=== PATIENT | male | born 1980 | race Caucasian/White ===

== ENCOUNTER 2016-09-20 21:27 | Inpatient (IN) | payer OTHER ==
--- NOTE | ~2016-09-20 | PN ---
Unit #: [id number] #: [id number] Patient: GEORGIA CA III [id number] [facility] [address] [place] [address] [id number] MR#: [id number] NAME: GEORGIA CA III ROOM: [facility] Age: 36 Sex: M Admission Date: 09/20/2016 : 1980 Attending Physician: Sid Caro M.D. Admitting Physician: Sid Caro M.D. Primary Care Physician: Primary Care Physician Ruth DOOLEY PROGRESS NOTES DATE 09/26/2016 DISCUSSION Mr. Ca is a 36-year-old, white male who was seen today and chart was reviewed and case was discussed with the staff. He has been anxious, withdrawn though has not shown any agitation, irritability or behavioral problems and has been cooperative with the treatment recommendations. He has been taking the medication and tolerating them fairly well with no reported side effects. MENTAL STATUS EXAM Young white male who was casually dressed with fair personal hygiene, appears to be in no acute distress or discomfort. He was awake and alert on interaction with intact orientation. His mood was anxious with congruent affect but denies any suicidal or homicidal ideation. His insight and judgement remains slightly impaired. TREATMENT PLAN 1. We will continue him on his current medications and treatment protocol. We will monitor his response and make further adjustments as needed. 2. We will continue to follow up. Dictated by... Carl Cabrales/tita TD: 09/27/2016 23:40 JOB #: [id number] Unit #: [id number] #: [id number] Patient: GEORGIA CA III [facility] PROGRESS NOTES Page 1 of 1 X Sid Caro MD PROGRESS NOTE
--- NOTE | ~2016-09-20 | PN ---
Unit #: [id number] #: [id number] Patient: GEORGIA HUERTA III [id number] [facility] [address] [place] [address] [id number] I MR#: [id number] NAME: GEORGIA HUERTA III ROOM: [facility] Age: 36 Sex: M Admission Date: 09/20/2016 : 1980 Attending Physician: Sid Caro M.D. Admitting Physician: Carl Cabrales PROGRESS NOTES DATE OF SERVICE: 09/24/2016 SUBJECTIVE Mr. Huerta is a 36-year-old white male, who was seen today and chart was reviewed and the case was discussed with the staff. He has been anxious, withdrawn, depressed, and rather seclusive to himself and reports persistent feelings of hopelessness and helplessness. Meanwhile, he has been taking the medications and tolerating them fairly well with no reported side effects. MENTAL STATUS EXAMINATION Young white male, who was casually dressed with fair personal hygiene, appears to be in no acute distress or discomfort. He was awake and alert on interaction with intact orientation. His mood was anxious and depressed with a congruent affect. His speech was slow and goal directed. He denies any suicidal or homicidal ideations and also denies any auditory or visual hallucinations. His insight and judgment remain slightly impaired. TREATMENT PLAN 1. We will continue him on his current treatment protocol and we will increase his Paxil to 40 mg a day. 2. We will continue to follow up. Dictated by... Carl Cabrales/mary TD: 09/24/2016 21:10 JOB #: [id number] Unit #: [id number] #: [id number] Patient: GEORGIA HUERTA III [facility] PROGRESS NOTES Page 1 of 1 X Sid Caro MD PROGRESS NOTE
--- NOTE | ~2016-09-20 | PN ---
Unit #: [id number] #: [id number] Patient: GEORGIA HUERTA III [id number] [facility] [address] [place] [address] [id number] I MR#: [id number] NAME: GEORGIA HUERTA III ROOM: [facility] Age: 36 Sex: M Admission Date: 09/20/2016 : 1980 Attending Physician: Sid Caro M.D. Admitting Physician: Carl Cabrales PROGRESS NOTES DATE OF SERVICE: 09/22/2016 SUBJECTIVE Mr. Huerta is a 36-year-old white male, who was seen today and chart was reviewed and case was discussed with the staff. He has been anxious, withdrawn, and rather seclusive to himself and he reports is still having auditory as well as visual hallucinations and increasing anxiety. However, he has been taking medications and tolerating them fairly well with no reported side effects. MENTAL STATUS EXAMINATION Young white male who was casually dressed with a fair personal hygiene, appears to be in no acute distress or discomfort. He was awake and alert on interaction with intact orientation. His mood was anxious with a congruent affect. He denies any suicidal or homicidal ideations, though he does report auditory or visual hallucinations. His insight and judgment remain slightly impaired. TREATMENT PLAN 1. We will continue his current medications and treatment protocol. We will monitor his response to medications and make further adjustments as needed. 2. We will continue to follow up. Dictated by... Carl Cabrales/mary TD: 09/22/2016 08:45 JOB #: [id number] Unit #: [id number] #: [id number] Patient: GEORGIA HUERTA III [facility] PROGRESS NOTES Page 1 of 1 X Sid Caro MD PROGRESS NOTE
--- NOTE | ~2016-09-20 | HP ---
Unit #: [id number] #: [id number] Patient: HUGO HUERTA III [id number] [place] [address] [id number] I MR#: [id number] NAME: HUGO HUERTA III ROOM: [facility] Age: 36 Sex: M Admission Date: 09/20/2016 : 1980 Attending Physician: Sid Caro M.D. Admitting Physician: Sid Caro M.D. Primary Care Physician: Primary Care Physician No HISTORY AND PHYSICAL HISTORY OF PRESENT ILLNESS Hugo is a 36 year old [address] to [facility] because of his continued polysubstance abuse which includes IV meth and heroin. PAST MEDICAL HISTORY 1. Long history of polysubstance abuse to include IV drugs. 2. Degenerative disc disease. a. Chronic back pain. 3. Hepatitis C. 4. High blood pressure. 5. History of Tourettes. 6. GERD. 7. COPD. 8. History of drug induced [place], by patient's report. PAST SURGICAL HISTORY 1. Right ankle fracture with ORIF. 2. Bilateral wrist fractures and right boxer fracture with ORIF. ALLERGIES Haldol, ibuprofen (itching), naproxen. SOCIAL HISTORY Smokes two packs per day, has a long history of polysubstance abuse to include IV drugs. FAMILY HISTORY Medically noncontributory. REVIEW OF SYSTEMS CONSTITUTIONAL: No fever or chills. HEENT: Denies any sore throat, ear pain or runny nose. CARDIOVASCULAR: Denies chest pain, irregular heart rhythm or palpitations. CHEST: Denies shortness of breath or cough. No hemoptysis. GASTROINTESTINAL: Denies nausea, vomiting, diarrhea or chronic constipation. ENDOCRINE: Denies history of increased thirst or urination. No recent significant weight loss or gain. GENITOURINARY: Denies dysuria, frequency, or hematuria. SKIN: Denies any rashes. HEMATOLOGIC: Denies history of increased bleeding or bruising. MUSCULOSKELETAL: Denies any hot, swollen joints. No generalized muscle Unit #: [id number] #: [id number] Patient: HUGO HUERTA III pain. NEUROLOGIC: Denies problems with vision or speech. No frequent, severe headaches. No numbness, tingling or weakness in any extremities. Denies loss of bladder or bowel control. CURRENT MEDICATIONS 1. Detox protocol 2. Paxil 20 mg daily PHYSICAL EXAMINATION GENERAL: Alert, well-nourished, in no apparent distress. VITAL SIGNS: Blood pressure 100/62, heart rate 80, respirations 16, temperature 98.6. WEIGHT: 212 pounds. HEIGHT: 5'1". SKIN: Warm and dry without rash or lesion. HEENT: Normocephalic. TMs not viewed. Oral and nasal passages clear. Conjunctivae clear. Pupils equal, round and reactive to light and accommodation. Extraocular movements intact. NECK: Supple without lymphadenopathy or thyromegaly. HEART: Regular rate and rhythm without murmur. LUNGS: Clear. ABDOMEN: Soft, nontender. : Not done. EXTREMITIES: No evidence of cyanosis, clubbing or edema. Moves all extremities without focal deficit. NEUROLOGICAL: Grossly within normal limits. Cranial Nerves: II: Visual duvall are intact. III, IV AND : Extraocular movements are intact. Pupils are equal, round and reactive to light. V: Facial sensation is grossly normal. VII: Facial movements and expression are normal. VIII: Auditory acuity grossly intact. IX, X: Uvula is midline. Phonation is normal. XI: Patient shrugs shoulders and turns head normally. XII: Tongue protrudes in the midline. Sensory and Motor Function: Sensory and motor sensation is grossly normal. Motor: moves all extremities well. Coordination: Gait is normal. Deep Tendon Reflexes: Intact. IMPRESSION Psychiatric admission RECOMMENDATIONS PSYCHIATRIC: Per psychiatrist. MEDICAL: I see no contraindications to participating in facility's activities. MEDICAL PROGNOSIS Good. MEDICAL CONDITION Stable. Dictated by... Unit #: [id number] #: [id number] Patient: HUGO HUERTA III Isidra Bustos P.A.-C. for Carl Santos/tita TD: 09/21/2016 22:03 JOB #: [id number] HISTORY AND PHYSICAL Page 1 of 1 X Isidra Bustos HISTORY AND PHYSICAL
--- NOTE | ~2016-09-20 | PN ---
Unit #: [id number] #: [id number] Patient: GEORGIA CA III [id number] [facility] [address] [place] [address] [id number] I MR#: [id number] NAME: GEORGIA CA III ROOM: [facility]1 Age: 36 Sex: M Admission Date: 09/20/2016 : 1980 Attending Physician: Sid Caro M.D. Admitting Physician: Sid Caro M.D. Primary Care Physician: Primary Care Physician Ruth DOOLEY PROGRESS NOTES DATE 09/23/2016 DISCUSSION Mr. Ca is a 36-year-old, white male with mood disorder who was seen today and chart was reviewed and case was discussed with the staff. He remains anxious, withdrawn, depressed and seclusive to himself reports strong feelings and has been complaining of persistent auditory hallucinations and depressive symptoms. He has been taking the medications and tolerating them fairly well. MENTAL STATUS EXAM Young white male who was casually dressed with fair personal hygiene, appears to be in no acute distress or discomfort. He was awake and alert on interaction with intact orientation. His mood was anxious and depressed with congruent affect. He reports having suicidal ideations and auditory hallucinations. His insight and judgement remains significantly impaired. TREATMENT PLAN 1. We will continue him on his current treatment protocol. We will monitor his response to treatment interventions and we will make further adjustments as needed. 2. We will continue to follow up. Dictated by... Carl Cabrales/tita TD: 09/23/2016 21:17 JOB #: [id number] Unit #: [id number] #: [id number] Patient: GEORGIA CA III [facility] PROGRESS NOTES Page 1 of 1 X Sid Caro MD PROGRESS NOTE
--- NOTE | ~2016-09-20 | PA ---
Unit #: [id number] #: [id number] Patient: GEORGIA HUERTA III [id number] [facility] [address] [place] [address] [id number] I MR#: [id number] NAME: GEORGIA HUERTA III ROOM: [facility] Age: 36 Sex: M Admission Date: 09/20/2016 : 1980 Date of Assessment: 09/21/2016 Attending Physician: Sid Caro M.D. Admitting Physician: Sid Caro M.D. Primary Care Physician: Primary Care Physician No PSYCHIATRIC ASSESSMENT DATE OF SERVICE 09/21/2016. IDENTIFYING DATA Mr. Huerta is 36-year-old single white male, who is a [place], [place], and is known to us from previous multiple encounters and was self-referred to the hospital. CHIEF COMPLAINT "I've been depressed and suicidal for a while now." HISTORY OF PRESENT ILLNESS Mr. Huerta is a 36-year-old white male with history of substance abuse and mood disorder, who was self-referred to the hospital. Reporting increasing depression, anxiety, and suicidal ideation, "I used meth yesterday." He reports that he has been out of long-term for two and half weeks and since then he has been using up to 3 g a day of IV meth and has been using 0.5 g of IV heroin a day. Reports that he is suicidal and wants to cut his throat to kill himself. Reports meth related delusional thoughts about police watching and monitoring and reports that he became paranoid at [facility]. Last night, causing a scene and was asked to leave the [facility], and he has been awake for 3 days. He was seen to be anxious, withdrawn, agitated, irritable, and reporting active suicidal ideations, and as such, recommendation for inpatient hospitalization for safety and stabilization was made. SUBSTANCE ABUSE HISTORY The patient reports history of cocaine and opioids and methamphetamine abuse and currently methamphetamine and heroin appears to be his drug of choice. PAST PSYCHIATRIC HISTORY The patient has had history of multiple [facility] in addition to being at [facility]. Review of the medical records indicate that his last hospitalization was in 11/2015 and was diagnosed with depression with psychosis as well as opioid and methamphetamine dependence. PAST MEDICAL HISTORY The patient's medical history is significant for hepatitis C, degenerative disk disease, hypertension, Tourette syndrome, gastroesophageal reflux disease, COPD, history of myocardial infarction, factor V deficiency. Unit #: [id number] #: [id number] Patient: GEORGIA HUERTA III ALLERGIES Haldol, ibuprofen, and naproxen. PERSONAL AND SOCIAL HISTORY A 36-year-old white male, who reports that he is single, unemployed, and essentially homeless as he was staying in a [facility] house and was kicked out of there. MENTAL STATUS EXAMINATION Young white male who was casually dressed with fair personal hygiene, appears to be in no acute distress or discomfort. He was awake and alert on interaction with intact orientation to time, place, and person. His mood was anxious and depressed with a congruent affect. His speech was slow and restricted in content. His thought processes were disorganized with some looseness of associations and suicidal ideations and paranoid ideations and delusional behavior. His insight and judgment remain significantly impaired. DIAGNOSTIC IMPRESSION Psychiatric: Major depressive disorder, recurrent, moderate, with psychosis; opioid dependence, moderate and acute withdrawals; methamphetamine dependence, moderate. Medical: Hepatitis C, degenerative disk disease, hypertension, Tourette syndrome, gastroesophageal reflux disease, chronic obstructive pulmonary disease, myocardial infarction, and factor V deficiency. Stressors: Moderate psychosocial stressors. TREATMENT PLAN 1. The patient has presented with history of mood disorder and substance abuse and dependence and has been decompensating and will need inpatient hospitalization for safety and stabilization. We will start him back on his home medications and we will adjust the medications. We will also start him on opioid detox protocol. 2. Supportive therapy was provided to the patient. 3. Safe, structured, and nourishing environment will be provided. ESTIMATED LENGTH OF STAY 4 to 5 days. ABILITY TO HELP SELF Limited. WILLINGNESS TO HELP SELF The patient appears to be willing to help self. STRENGTHS 1. Communicative. 2. Cooperative. PROBLEMS 1. Chronic dysphoric symptoms. 2. Poor social support system. DISCHARGE CRITERIA This will be contingent upon the patient's ability to show resolution of his depression and anxiety and psychosis as well as his ability to stay safe to himself, particularly after discharge from the hospital. Unit #: [id number] #: [id number] Patient: GEORGIA HUERTA III Dictated by... Carl Cabrales/mary TD: 09/21/2016 07:08 JOB #: [id number] PSYCHIATRIC ASSESSMENT Page 1 of 1 X Sid Caro MD PSYCHIATRIC ASSESSMENT
--- NOTE | ~2016-09-20 | DS ---
Unit #: [id number] #: [id number] Patient: GEORGIA HUERTA III [id number] [facility] [address] [place] [address] [id number] I MR#: [id number] NAME: GEORGIA HUERTA III ROOM: [facility] Age: 36 Sex: M Admission Date: 09/20/2016 : 1980 Discharge Date: 09/28/2016 Attending Physician: Sid Caro M.D. Primary Care Physician: Primary Care Physician No DISCHARGE SUMMARY IDENTIFYING DATA Mr. Huerta is a 36-year-old single white male, who is a resident of [place], [place], and is known to us from previous encounter, was self-referred to the hospital. DISCHARGE DIAGNOSES Psychiatric: Major depressive disorder, recurrent, moderate, with psychosis; opioid dependence, moderate and acute withdrawals; methamphetamine dependence, moderate. Medical: Hepatitis C, degenerative disk disease, hypertension, Tourette syndrome, gastroesophageal reflux disease, chronic obstructive pulmonary disease, myocardial infarction, factor V deficiency. Stressors: Moderate psychosocial stressors. HISTORY OF PRESENT ILLNESS Please see initial psychiatric evaluation for details. PAST PSYCHIATRIC HISTORY Please see initial psychiatric evaluation for details. PAST MEDICAL HISTORY Please see initial psychiatric evaluation for details. HOSPITAL COURSE The patient was admitted to the adult psychiatric unit at [facility] and was oriented to the hospital environment. Routine p.r.n. medications were initiated, and he was started back on his home medications. Medications were adjusted and Seroquel and Paxil were restarted and Paxil was then gradually titrated up as the patient was constantly complaining of persistent depression, anxiety, and hallucinations; however, it was also noticed that he was minimally motivated towards treatment, and was just sleeping and eating most of the time and not participating any treatment related activities and was just wanting to stay in his bed and with no further adjustments being made in his medications, it was decided that he will be discharged home and will continue treatment on an outpatient basis. DISCHARGE MEDICATIONS Seroquel 100 mg at bedtime for psychosis and Paxil 40 mg in the morning for depression. DISCHARGE CONDITION Stable. Unit #: [id number] #: [id number] Patient: GEORGIA HUERTA III PROGNOSIS Fair. Dictated by... Sid Caro M.D. IAA/modl TD: 09/28/2016 06:53 JOB #: [id number] DISCHARGE SUMMARY Page 1 of 1 X Sid Caro MD DISCHARGE SUMMARY
--- NOTE | ~2016-09-20 | PN ---
Unit #: [id number] #: [id number] Patient: GEORGIA CA III [id number] [facility] [address] [place] [address] [id number] MR#: [id number] NAME: GEORGIA CA III ROOM: [facility] Age: 36 Sex: M Admission Date: 09/20/2016 : 1980 Attending Physician: Sid Caro M.D. Admitting Physician: Sid Caro M.D. Primary Care Physician: Primary Care Physician Ruth BARNETT NOTES DATE 09/25/2016 DISCUSSION Mr. Ca is a 36-year-old white male who was seen today and chart was reviewed and case was discussed with the staff. He has been anxious, withdrawn though has not shown any agitation, irritability or behavioral problems and has been cooperative with treatment recommendations as he has been taking medications and tolerating them fairly well with no reported side effects. MENTAL STATUS EXAMINATION Young white male who was casually dressed with fair personal hygiene and appears to be in no acute distress or discomfort. He was awake and alert on interaction with intact orientation. His mood was anxious with congruent affect. His speech is slow and restricted in content. He reports having suicidal ideation and auditory hallucinations. His insight and judgement remains slightly impaired. TREATMENT PLAN 1. Will continue on his current medications and treatment protocol. Will monitor his response to the medications and make further adjustments as needed. 2. Will continue to follow up. Dictated by... Carl Cabrales/duncan TD: 09/25/2016 18:52 JOB #: [id number] Unit #: [id number] #: [id number] Patient: GEORGIA CA III [facility] PROGRESS NOTES Page 1 of 1 X Sid Caro MD PROGRESS NOTE
--- NOTE | ~2016-09-20 | PN ---
Unit #: [id number] #: [id number] Patient: GEORGIA CA III [id number] [facility] [address] [place] [address] [id number] MR#: [id number] NAME: GEORGIA CA III ROOM: [facility] Age: 36 Sex: M Admission Date: 09/20/2016 : 1980 Attending Physician: Sid Caro M.D. Admitting Physician: Sid Caro M.D. Primary Care Physician: Primary Care Physician Ruth DOOLEY PROGRESS NOTES DATE 09/27/2016 DISCUSSION Mr. Ca is a 36-year-old, white male who was seen today and chart was reviewed and case was discussed with the staff. He has been anxious, withdrawn and rather seclusive to himself. Meanwhile, he has been cooperative with treatment recommendations. He has been taking the medication and tolerating them fairly well with no reported side effects. MENTAL STATUS EXAM Young white male who was casually dressed with fair personal hygiene, appears to be in no acute distress or discomfort. He was awake and alert on interaction with intact orientation. His mood was anxious and depressed with congruent affect. He denies any suicidal or homicidal ideation. Also, denies any auditory or visual hallucinations. His insight and judgement remains slightly impaired. TREATMENT PLAN 1. We will continue him on his current treatment protocol. We will monitor his response and make further adjustments as needed. 2. We will continue to follow up. Dictated by... Carl Cabrales/tita TD: 09/28/2016 21:11 JOB #: [id number] Unit #: [id number] #: [id number] Patient: GEORGIA CA III [facility] PROGRESS NOTES Page 1 of 1 X Sid Caro MD PROGRESS NOTE
[~2016-09-20 21:27] MED LIST: AMOXICILLIN PO; DIAZEPAM PO
[2016-09-21 09:25] LABS: BASOPHIL% 0.5 % (0-2.5); EOSINOPHIL# 0.1 X10e3 (0-0.7); EOSINOPHIL% 1.9 % (0.0-7.0); HEMATOCRIT 42.6 % (38.0-50.0); HEMOGLOBIN 14.6 gm/dL (13.0-16.0); LYMPHOCYTE# 2.4 X10e3 (1.0-3.5); LYMPHOCYTE% 34.2 % (17.0-45.0); MEAN CELL VOLUME 88.5 FL (83-96); MEAN CORPUSCULAR HEMOGLOBIN 30.4 PG (28-34); MEAN CORPUSCULAR HGB CONC 34.3 g/dL (30-36); MEAN PLATELET VOLUME 8.1 FL (6.5-11.5); MONOCYTE# 0.9 X10e3 (0-1.0); MONOCYTE% 12.2 % (3.0-12.0); NEUTROPHIL# 3.6 X10e3 (1.5-7.1); NEUTROPHIL% 51.2 % (40-75); PLATELET COUNT 254 X10e3 (140-420); RED BLOOD COUNT 4.81 X10e (3.90-5.60); RED CELL DISTRIBUTION WIDTH 13.3 % (11.0-15.5); WHITE BLOOD COUNT 7.1 X10e3 (4.0-10.5)
[2016-09-21 09:52] LABS: DIFF IND NO; THYROID STIMULATING HORMONE 0.99 uIU/ml (0.34-5.60)
[2016-09-21 09:53] LABS: ALBUMIN SERUM 4.4 g/dL (3.5-5.0); BILIRUBIN,TOTAL 2.1 mg/dL (0.2-2.0); CALCIUM SERUM 9.3 mg/dL (8.4-10.2); CREATININE SERUM 0.6 mg/dL (0.6-1.4); GLOM FILT RATE Estimated 130.3 mL/min (>60); POTASSIUM 3.6 mmol/L (3.5-5.1); PROTEIN TOTAL SERUM 7.3 g/dL (6.0-8.3)
[2016-09-21 10:01] LABS: FREE THYROXIN (T4) 1.3 ng/dL (0.58-1.64)
[2016-09-22 09:32] LABS: URINE APPEARANCE CLEAR; URINE BILIRUBIN NEG (NEG); URINE BLOOD NEG (NEG); URINE COLOR YELLOW; URINE GLUCOSE NEG (NEG); URINE KETONE TRACE (NEG); URINE LEUKOCYTE ESTERASE NEG (NEG); URINE NITRATE NEG (NEG); URINE PROTEIN NEG (NEG); URINE SPECIFIC GRAVITY 1.014 (1.003-1.035); URINE UROBILINOGEN 0.2 MG/DL (NEG)
[2016-09-22 10:01] LABS: AMPHETAMINE POS (NEG); BARBITURATES NEG (NEG); BENZODIAZEPINES NEG (NEG); COCAINE POS (NEG); MARIJUANA NEG (NEG); OPIATES NEG (NEG); TRICYCLIC ANTIDEPRESSANTS NEG (NEG); U METHADONE NEG (NEG)
[2016-09-25 11:33] LABS: HA AB IGM (HEPPAN) Nonreactive (()); HB CORE AB IGM (HEPPAN) Reactive (Nonreactive); HB S AG (HEPPAN) Nonreactive (Nonreactive); HEP C AB (HEPPAN) Reactive (Nonreactive)
== END 2016-09-28 09:15 | disposition home or self-care (01) | DRG 885 ==
LOC: P1E 21:27
PROVIDERS: Psychiatry & Neurology Psychiatry
PROC: HZ2ZZZZ Detoxification Services for Substance Abuse Treatment (ICD-10-PCS; principal; 2016-09-20)
DX: F33.3 Major depressive disorder, recurrent, severe with psychotic symptoms (principal); D68.2 Hereditary deficiency of other clotting factors; F15.20 Other stimulant dependence, uncomplicated; F95.2 Tourette's disorder; R45.851 Suicidal ideations; F11.23 Opioid dependence with withdrawal; B19.20 Unspecified viral hepatitis C without hepatic coma; I10 Essential (primary) hypertension; M19.90 Unspecified osteoarthritis, unspecified site; J44.9 Chronic obstructive pulmonary disease, unspecified; K21.9 Gastro-esophageal reflux disease without esophagitis; I25.2 Old myocardial infarction; Z59.0 Homelessness; F17.210 Nicotine dependence, cigarettes, uncomplicated
CPT/HCPCS: 80053; 80074; 80307; 81003; 84439; 84443; 85025; 86592; 87522; 87806

== ENCOUNTER 2016-10-11 22:57 | Inpatient (IN) | payer OTHER ==
--- NOTE | ~2016-10-11 | PA ---
Unit #: [id number] #: [id number] Patient: GEORGIA CA III [id number] [facility] [place] [address] [id number] MR#: [id number] NAME: GEORGIA CA III ROOM: P178 Age: 36 Sex: M Admission Date: 10/11/2016 : 1980 Date of Assessment: Attending Physician: Sid Caro M.D. Admitting Physician: Sid Caro M.D. Primary Care Physician: Primary Care Physician No PSYCHIATRIC ASSESSMENT DATE OF SERVICE 10/12/2016. IDENTIFYING DATA Mr. Ca is a 36-year-old, single, white male, who is a resident of [place], [place], and is well known to us from previous multiple encounters and was recently discharged from my care and was self-referred back to the hospital. CHIEF COMPLAINT "Suicidal ideation with a plan to overdose on heroin or ICE." HISTORY OF PRESENT ILLNESS Mr. Myers is a 36-year-old white male with a history of substance abuse and dependence, mood disorder, who was recently self-referred back to the hospital reporting increasing depression and felt that he has felt depressed about life itself and that he has not seen children for the past 8 months and he has been using a quarter of a gram of IV heroin and reports using 2 g IV meth on daily basis and last use was last night. He reports that he takes 4 to 5 Xanax on daily basis and last use was yesterday. Reports he relapsed because he is unable to see his children and admits to noncompliance with medications leading to increased depression, anxiety, irritability, restlessness, feelings of hopelessness and helplessness, and suicidal ideations with intent and plan. SUBSTANCE ABUSE HISTORY The patient reports history of cannabis, opioids, methamphetamine, benzodiazepine abuse, and currently, he has been using opioids, methamphetamine and benzos on regular basis. PAST PSYCHIATRIC HISTORY The patient has had a history of multiple inpatient psychiatric hospitalizations at [facility] and has been diagnosed and treated for mood disorder. Review of the medical records indicate that he is supposed to be on Paxil and Seroquel, but has been noncompliant with medication as such, has been decompensating. PAST MEDICAL HISTORY Hepatitis C and degenerative disk disease. ALLERGIES Haldol. Unit #: [id number] #: [id number] Patient: GEORGIA CA III PERSONAL AND SOCIAL HISTORY A 36-year-old white male, who reports that he is single, unemployed, and essentially homeless and has poor social support system. MENTAL STATUS EXAMINATION Young white male, who was casually dressed with fair personal hygiene, appears to be in no acute distress or discomfort. He was awake and alert on interaction with intact orientation to time, place, and person. His mood was anxious and depressed with a congruent affect. His speech was slow and goal directed. Thought process, he reports having suicidal ideation, but denies any homicidal ideations, and also denies any auditory or visual hallucinations. His insight and judgment remain significantly impaired. DIAGNOSTIC IMPRESSION Psychiatric: Major depressive disorder, recurrent, moderate, without psychotic features; opioid dependence, moderate and acute withdrawals; benzodiazepine dependence, moderate; methamphetamine dependence, moderate. Medical: Hepatitis C, bulging disks. Stressors: Moderate psychosocial stressors. TREATMENT PLAN 1. The patient has presented with a history of substance abuse and mood disorder, and has been decompensating and will need inpatient hospitalization for detoxification, safety, and stabilization. We will start him back on his home medications. We will adjust the medications and monitor response. 2. Supportive therapy was provided to the patient. 3. Safe, structured, and nourishing environment will be provided. ESTIMATED LENGTH OF STAY 4 to 5 days. ABILITY TO HELP SELF Limited. WILLINGNESS TO HELP SELF The patient appears to be willing to help self. STRENGTHS 1. Communicative. 2. Cooperative. PROBLEMS 1. Chronic dysphoric symptoms. 2. Chronic chemical dependency. 3. Poor social support system. DISCHARGE CRITERIA This will be contingent upon the patient's ability to go through detox without having any significant withdrawal symptoms as well as his ability to stay safe to himself, particularly after discharge from the hospital. Dictated by... Sid Caro M.D. Unit #: [id number] #: [id number] Patient: GEORGIA CA III IAA/modl TD: 10/12/2016 07:06 JOB #: [id number] PSYCHIATRIC ASSESSMENT Page 1 of 1 X Sid Caro A MD X PSYCHIATRIC ASSESSMENT
--- NOTE | ~2016-10-11 | HP ---
Unit #: [id number] #: [id number] Patient: HUGO HUERTA III [id number] [facility] [address] [place] [address] [id number] MR#: [id number] NAME: HUGO HUERTA III ROOM: [facility] Age: 36 Sex: M Admission Date: 10/11/2016 : 1980 Attending Physician: Sid Caro M.D. Admitting Physician: Sid Caro M.D. Primary Care Physician: Primary Care Physician No HISTORY AND PHYSICAL HISTORY OF PRESENT ILLNESS Hugo is a 36-year-old admitted to [facility] because of his continued polysubstance abuse. He has had numerous admissions to this facility for treatment of the same. Patient was seen and H and P dated 09/21/2016, was reviewed; this is current. No changes except he does have multiple "sores" along his anterior chest and upper abdomen. There is no increased redness, swelling, heat or pus noted. MEDICAL ASSESSMENT AND PLAN 1. Continued polysubstance abuse 2. Multiple small sores where he picks when he is high RECOMMENDATIONS 1. Psychiatric, per psychiatrist. 2. Medical: I see no contraindications to participating in facility's activities. Keep the sores clean with soap and water. No further prescription. Please see H and P dated 09/21/2016, for History and Physical exam. Dictated by... Mateo Rosales/gifty TD: 10/12/2016 20:10 JOB #: [id number] Unit #: [id number] #: [id number] Patient: HUGO HUERTA III HISTORY AND PHYSICAL Page 1 of 1 X Isidra Bustos HISTORY AND PHYSICAL
--- NOTE | ~2016-10-11 | PN ---
Unit #: [id number] #: [id number] Patient: GEORGIA CA III [id number] [facility] [address] [place] [address] [id number] MR#: [id number] NAME: GEORGIA CA III ROOM: [facility] Age: 36 Sex: M Admission Date: 10/11/2016 : 1980 Attending Physician: Sid Caro M.D. Admitting Physician: Sid Caro M.D. Primary Care Physician: Primary Care Physician Ruth BARNETT NOTES DATE 10/16/2016 DISCUSSION Mr. Ca is a 36-year-old white male who was seen today, chart was reviewed and case was discussed with the staff. He has been anxious and withdrawn and rather seclusive to himself. Meanwhile, he has been cooperative with treatment recommendations. He has been taking medication and tolerating them fairly well. symptoms. MENTAL STATUS EXAMINATION Young white male who was casually dressed with fair personal hygiene and appears to be in no acute distress or discomfort. . His mood was anxious with a congruent affect. He denies any suicidal or homicidal ideation. His insight and judgment remain slightly impaired. TREATMENT PLAN Will continue on current medications and treatment protocol. We will monitor his response and make further adjustments as needed. We will continue to follow up. Dictated by... aCrl Cabrales TD: 10/16/2016 09:43 JOB #: [id number] [facility] PROGRESS NOTES Page 1 of 1 X Sid Caro MD PROGRESS NOTE
--- NOTE | ~2016-10-11 | PN ---
Unit #: [id number] #: [id number] Patient: GEORGIA CA III [id number] [facility] [address] [place] [address] [id number] I MR#: [id number] NAME: GEORGIA CA III ROOM: 78 Age: 36 Sex: M Admission Date: 10/11/2016 : 1980 Attending Physician: Sid Caro M.D. Admitting Physician: Sid Caro M.D. Primary Care Physician: Primary Care Physician Ruth DOOLEY PROGRESS NOTES DATE OF SERVICE: 10/13/2016 SUBJECTIVE Mr. Ca is a 36-year-old white male, who was seen today and chart was reviewed and the case was discussed with the staff. He has been anxious, withdrawn and rather seclusive to himself and has not been functioning very well. Meanwhile, he has been taking the medications and tolerating them fairly well. MENTAL STATUS EXAMINATION Young white male, who was casually dressed with fair personal hygiene, appears to be in no acute distress or discomfort. He is awake and alert on interaction with intact orientation. His mood was anxious with a congruent affect. His speech was slow and goal directed. He denies suicidal or homicidal ideation and also denies any auditory or visual hallucinations. His insight and judgment remain slightly impaired. TREATMENT PLAN 1. We will continue his current medications and treatment protocol. We will monitor his response to the medications and make further adjustment as needed. 2. We will continue to follow up. Dictated by... Carl Cabrales/mary TD: 10/13/2016 08:46 JOB #: [id number] [facility] PROGRESS NOTES Page 1 of 1 X Sid Caro MD PROGRESS NOTE
--- NOTE | ~2016-10-11 | DS ---
Unit #: [id number] #: [id number] Patient: GEORGIA HUERTA III [id number] [facility] [address] [place] [address] [id number] MR#: [id number] NAME: GEORGIA HUERTA III ROOM: P178 Age: 36 Sex: M Admission Date: 10/11/2016 : 1980 Discharge Date: 10/17/2016 Attending Physician: Sid Caro M.D. Primary Care Physician: Primary Care Physician No DISCHARGE SUMMARY IDENTIFYING DATA Mr. Huerta is a 36-year-old single white male who is very well known to me from previous multiple encounters and is a resident of [place], [place] and was self-referred to the hospital. DISCHARGE DIAGNOSES Psychiatric: Major depressive disorder, recurrent, moderate, without psychotic features; opioid dependence, moderate and acute withdrawals; benzodiazepine dependence, moderate; methamphetamine dependence, moderate. Medical: None. Stressors: Moderate psychosocial stressors. HISTORY OF PRESENT ILLNESS Please see initial psychiatric evaluation for details. PAST PSYCHIATRIC HISTORY Please see initial psychiatric evaluation for details. PAST MEDICAL HISTORY Please see initial psychiatric evaluation for details. HOSPITAL COURSE The [facility] and was oriented to the hospital environment. Routine p.r.n. medications were initiated, and he was started back on his home medications and Paxil and Seroquel were initiated and detox protocol was initiated, and was closely monitored. He was taking the medications regularly and was tolerating them fairly well, and was able to show a decent therapeutic response with improvement in depression and anxiety and was willing to continue treatment on an outpatient basis and as such, it was decided that he will be discharged home and will continue treatment on an outpatient basis. DISCHARGE MEDICATIONS Paxil 40 mg a day for depression and Seroquel 100 mg a day for depression. DISCHARGE CONDITION Stable. PROGNOSIS Fair. Dictated by... Unit #: [id number] #: [id number] Patient: GEORGIA HUERTA III Sid Caro M.D. IAA/modl TD: 10/17/2016 11:59 JOB #: [id number] DISCHARGE SUMMARY Page 1 of 1 X Sid Caro MD DISCHARGE SUMMARY
--- NOTE | ~2016-10-11 | PN ---
Unit #: [id number] #: [id number] Patient: GEORGIA CA III [id number] [facility] [address] [place] [address] [id number] MR#: [id number] NAME: GEORGIA CA III ROOM: 78 Age: 36 Sex: M Admission Date: 10/11/2016 : 1980 Attending Physician: Sid Caro M.D. Admitting Physician: Sid Caro M.D. Primary Care Physician: Primary Care Physician Ruth BARNETT NOTES DATE OF SERVICE: 10/15/2016 SUBJECTIVE Mr. Ca is a 36-year-old white male who was seen today and chart was reviewed, and case was discussed with the staff. He remains anxious, withdrawn, restless and seclusive to himself. He reports not feeling well, who has been complaining of persistent depression with feelings of hopelessness and suicidal ideations. Meanwhile, he has been taking the medications and tolerating them fairly well with no reported side effects. MENTAL STATUS EXAMINATION Young white male who was casually dressed with a fair personal hygiene and appears to be in no acute distress or discomfort. He was awake and alert on interaction with intact orientation. His mood was anxious with a congruent affect. He reports having suicidal ideations, but denies any homicidal ideations. His insight and judgment remain slightly impaired. TREATMENT PLAN 1. We will continue him on his current medications and treatment protocol. We will monitor his response and make further adjustments as needed. 2. We will continue to follow up. Dictated by... Carl Cabrales/mary TD: 10/15/2016 08:07 JOB #: [id number] [facility] PROGRESS NOTES Page 1 of 1 X Sid Caro MD PROGRESS NOTE
--- NOTE | ~2016-10-11 | PN ---
Unit #: [id number] #: [id number] Patient: GEORGIA CA III [id number] [facility] [address] [place] [address] [id number] MR#: [id number] NAME: GEORGIA CA III ROOM: [facility] Age: 36 Sex: M Admission Date: 10/11/2016 : 1980 Attending Physician: Sid Caro M.D. Admitting Physician: Sid Caro M.D. Primary Care Physician: Primary Care Physician Ruth DOOLEY PROGRESS NOTES DATE OF SERVICE: 10/14/2016 SUBJECTIVE Mr. Ca is a 36-year-old white male, who was seen today and chart was reviewed, and case was discussed with the staff. He has been anxious, withdrawn, and rather seclusive to himself. Meanwhile, he has been cooperative with treatment recommendations and has been taking the medications and tolerating them fairly well with no reported side effects. MENTAL STATUS EXAMINATION Young white male, who was casually dressed with fair personal hygiene, appears to be in no acute distress or discomfort. He was awake and alert on interaction with intact orientation. His mood was anxious with a congruent affect. He denies any suicidal or homicidal ideations. His insight and judgment remain slightly impaired. TREATMENT PLAN 1. We will continue him on his current medications and treatment protocol. We will monitor his response to the medications and make further adjustments as needed. 2. We will continue to follow up. Dictated by... Carl Cabrales/mary TD: 10/14/2016 11:52 JOB #: [id number] [facility] PROGRESS NOTES Page 1 of 1 X Sid Caro MD PROGRESS NOTE
[2016-10-12 12:37] LABS: URINE APPEARANCE CLEAR; URINE BILIRUBIN NEG (NEG); URINE BLOOD NEG (NEG); URINE COLOR YELLOW; URINE GLUCOSE NEG (NEG); URINE KETONE NEG (NEG); URINE LEUKOCYTE ESTERASE NEG (NEG); URINE NITRATE NEG (NEG); URINE PH 6.5 (5-8); URINE PROTEIN NEG (NEG); URINE SPECIFIC GRAVITY 1.009 (1.003-1.035)
== END 2016-10-17 10:50 | disposition home or self-care (01) | DRG 885 ==
LOC: P1E 22:57
PROVIDERS: Psychiatry & Neurology Psychiatry
PROC: HZ2ZZZZ Detoxification Services for Substance Abuse Treatment (ICD-10-PCS; principal; 2016-10-11)
DX: F33.1 Major depressive disorder, recurrent, moderate (principal); F13.20 Sedative, hypnotic or anxiolytic dependence, uncomplicated; F11.23 Opioid dependence with withdrawal; F15.20 Other stimulant dependence, uncomplicated; B19.20 Unspecified viral hepatitis C without hepatic coma
CPT/HCPCS: 81003

== ENCOUNTER 2016-11-05 11:49 | Inpatient (IN) | payer OTHER ==
--- NOTE | ~2016-11-05 | DS ---
Unit #: [id number] #: [id number] Patient: GEORGIA HUERTA III [id number] [facility] [address] [place] [address] [id number] MR#: [id number] NAME: GEORGIA HUERTA III ROOM: P174 Age: 36 Sex: M Admission Date: 11/05/2016 : 1980 Discharge Date: Attending Physician: Sid Caro M.D. Primary Care Physician: Primary Care Physician No DISCHARGE SUMMARY IDENTIFYING DATA Mr. Huerta is a 36-year-old single white male, who is a resident of [place], [place], and is known to us from previous multiple encounters and was just recently discharged from my care last month and once again brought himself back to the hospital on a voluntary basis. DISCHARGE DIAGNOSES Psychiatric: Major depressive disorder, recurrent, moderate, without psychotic features; opioid dependence, moderate in acute withdrawals; alcohol dependence, moderate; methamphetamine dependence, moderate. Medical: Hepatitis C. Stressors: Moderate psychosocial stressors. HISTORY OF PRESENT ILLNESS Please see initial psychiatric evaluation for details. PAST PSYCHIATRIC HISTORY Please see initial psychiatric evaluation for details. PAST MEDICAL HISTORY Please see initial psychiatric evaluation for details. HOSPITAL COURSE The patient was admitted to the adult chemical dependency unit at [facility] and was oriented to the hospital environment. Routine p.r.n. medications were initiated and was started back on his home medications and alcohol detox protocol was initiated as well. He was taking medications regularly and was tolerating them fairly well and was able to show a decent therapeutic response with improvement in depression and anxiety and as such, it was decided that he will be discharged home and will continue treatment on an outpatient basis. DISCHARGE CONDITION Stable. PROGNOSIS Fair. Dictated by... Sid Caro M.D. IAA/modl Unit #: [id number] #: [id number] Patient: GEORGIA HUERTA III TD: 11/09/2016 07:09 JOB #: [id number] DISCHARGE SUMMARY Page 1 of 1 X Sid Caro MD DISCHARGE SUMMARY
--- NOTE | ~2016-11-05 | HP ---
Unit #: [id number] #: [id number] Patient: HUGO HUERTA III [id number] [place] [address] [id number] MR#: [id number] NAME: HUGO HUERTA III ROOM: P174 Age: 36 Sex: M Admission Date: 11/05/2016 : 1980 Attending Physician: Sid Caro M.D. Admitting Physician: Sid Caro M.D. Primary Care Physician: Primary Care Physician No HISTORY AND PHYSICAL HISTORY OF PRESENT ILLNESS Hugo is a 36 year old admitted to [facility] because of his continued polysubstance abuse. PAST MEDICAL HISTORY 1. Long history of polysubstance abuse to include IV drugs 2. Degenerative disc disease. a. Chronic back pain. 3. Hepatitis C. 4. High blood pressure. 5. History of Tourette. 6. GERD. 7. COPD. 8. History of drug induced UT, by the patient's report. PAST SURGICAL HISTORY 1. Right ankle fracture with ORIF. 2. Bilateral wrist fractures and right boxers fracture with ORIF. ALLERGIES Haldol, ibuprofen (itching), Naproxen SOCIAL HISTORY Smokes two packs per day and he has a long history of polysubstance abuse to include IV drugs. FAMILY HISTORY Medically noncontributory. REVIEW OF SYSTEMS CONSTITUTIONAL: No fever or chills. HEENT: Denies any sore throat, ear pain or runny nose. CARDIOVASCULAR: Denies chest pain, irregular heart rhythm or palpitations. CHEST: Denies shortness of breath or cough. No hemoptysis. GASTROINTESTINAL: Denies nausea, vomiting, diarrhea or chronic constipation. ENDOCRINE: Denies history of increased thirst or urination. No recent significant weight loss or gain. GENITOURINARY: Denies dysuria, frequency, or hematuria. SKIN: Denies any rashes. HEMATOLOGIC: Denies history of increased bleeding or bruising. MUSCULOSKELETAL: Denies any hot, swollen joints. No generalized muscle Unit #: [id number] #: [id number] Patient: HUGO HUERTA III pain. NEUROLOGIC: Denies problems with vision or speech. No frequent, severe headaches. No numbness, tingling or weakness in any extremities. Denies loss of bladder or bowel control. CURRENT MEDICATIONS Detox protocol PHYSICAL EXAMINATION GENERAL: Alert, well-nourished, in no apparent distress. VITAL SIGNS: Blood pressure 124/80, heart rate 80, respirations 16, temperature 98.6. WEIGHT: 197 pounds. HEIGHT: 5'11". SKIN: Warm and dry without rash or lesion. HEENT: Normocephalic. TMs not viewed. Oral and nasal passages clear. Conjunctivae clear. Pupils equal, round and reactive to light and accommodation. Extraocular movements intact. NECK: Supple without lymphadenopathy or thyromegaly. HEART: Regular rate and rhythm without murmur. LUNGS: Clear. ABDOMEN: Soft, nontender. : Not done. EXTREMITIES: No evidence of cyanosis, clubbing or edema. Moves all extremities without focal deficit. NEUROLOGICAL: Grossly within normal limits. Cranial Nerves: II: Visual duvall are intact. III, IV AND : Extraocular movements are intact. Pupils are equal, round and reactive to light. V: Facial sensation is grossly normal. VII: Facial movements and expression are normal. VIII: Auditory acuity grossly intact. IX, X: Uvula is midline. Phonation is normal. XI: Patient shrugs shoulders and turns head normally. XII: Tongue protrudes in the midline. Sensory and Motor Function: Sensory and motor sensation is grossly normal. Motor: moves all extremities well. Coordination: Gait is normal. Deep Tendon Reflexes: Intact. IMPRESSION Psychiatric admission RECOMMENDATIONS PSYCHIATRIC: Per psychiatrist. MEDICAL: I see no contraindications to participating in facility's activities. MEDICAL PROGNOSIS Good. MEDICAL CONDITION Stable. Dictated by... Isidra Bustos P.A.-C. for Unit #: [id number] #: [id number] Patient: HUGO HUERTA III Carl Santos/tita TD: 11/06/2016 02:03 JOB #: [id number] HISTORY AND PHYSICAL Page 1 of 1 X Isidra Bustos HISTORY AND PHYSICAL
--- NOTE | ~2016-11-05 | PN ---
Unit #: [id number] #: [id number] Patient: GEORGIA CA III [id number] [facility] [address] [place] [address] [id number] I MR#: [id number] NAME: GEORGIA CA III ROOM: 74 Age: 36 Sex: M Admission Date: 11/05/2016 : 1980 Attending Physician: Sid Caro M.D. Admitting Physician: Sid Caro M.D. Primary Care Physician: Primary Care Physician Ruth BARNETT NOTES DATE November 06, 2016 DISCUSSION Mr. Ca is a 36-year-old white male, who was seen today and chart was reviewed and the case was discussed with the staff. He was seen to be anxious, withdrawn, depressed, and rather seclusive to himself. He was uncomfortable and described himself to be in acute distress and discomfort saying that he just wants to lay in his bed. Meanwhile, he has not shown any agitation or aggression and he has been taking the medications and tolerating them fairly well with no reported side effects. MENTAL STATUS EXAMINATION Young white male, who was casually dressed with fair personal hygiene and appears to be in no acute distress or discomfort. He was awake and alert with impaired attention and concentration. His mood is anxious with a congruent affect. His speech is slow and restricted in content. He reports having suicidal ideation but denies any homicidal ideations. His insight and judgment remain slightly impaired. TREATMENT PLAN 1. We will continue him on his current medications and treatment protocol, and will monitor his response to the medications, and make further adjustments as needed. 2. We will continue to followup. Dictated by... Carl Cabrales/tab TD: 11/06/2016 11:46 JOB #: [id number] Unit #: [id number] #: [id number] Patient: GEORGIA CA III [facility] PROGRESS NOTES Page 1 of 1 X Sid Caro MD PROGRESS NOTE
--- NOTE | ~2016-11-05 | PN ---
Unit #: [id number] #: [id number] Patient: GEORGIA HUERTA III [id number] [facility] [address] [place] [address] [id number] MR#: [id number] NAME: GEORGIA HUERTA III ROOM: 74 Age: 36 Sex: M Admission Date: 11/05/2016 : 1980 Attending Physician: Sid Caro M.D. Admitting Physician: Sid Caro M.D. Primary Care Physician: Primary Care Physician Ruth DOOLEY PROGRESS NOTES DATE 11/06/2016 DISCUSSION Mr. Huerta is a 36-year-old white male, who was seen today and chart was reviewed and the case was discussed with the staff. He has been anxious, withdrawn, depressed, and rather seclusive to himself. He was complaining of still having some detox symptoms . MENTAL STATUS EXAMINATION Young white male, who was casually dressed with a fair personal hygiene and appears to be in no acute distress or discomfort. He was awake and alert with impaired attention and concentration. His mood is anxious with a congruent affect. His speech is slow and restricted in content. He reports some suicidal ideation but denies any homicidal ideations. He also denies any auditory or visual hallucinations. His insight and judgment remain slightly impaired. TREATMENT PLAN 1. We will continue him on his current treatment protocol, and we will monitor his response to the medications, and make further adjustments as needed. 2. We will continue to followup. Dictated by... Sid Caro M.D. IAA/gifty TD: 11/08/2016 11:59 JOB #: [id number] Unit #: [id number] #: [id number] Patient: GEORGIA HUERTA III [facility] PROGRESS NOTES Page 1 of 1 X Sid Caro MD PROGRESS NOTE
--- NOTE | ~2016-11-05 | PA ---
Unit #: [id number] #: [id number] Patient: GEORGIA HUERTA III [id number] [facility] [address] [place] [address] [id number] MR#: [id number] NAME: GEORGIA HUERTA III ROOM: P174 Age: 36 Sex: M Admission Date: 11/05/2016 : 1980 Date of Assessment: 11/05/2016 Attending Physician: Sid Caro M.D. Admitting Physician: Sid Caro M.D. Primary Care Physician: Primary Care Physician No PSYCHIATRIC ASSESSMENT DATE OF SERVICE 11/05/2016. IDENTIFYING DATA Mr. Moran is a 36-year-old single white male who is a resident of [place], [place] and is known to us from previous multiple encounters and was recently discharged from my care late last month and once again brought back to the hospital on a voluntary basis. CHIEF COMPLAINT "I'm a drug addict, suicidal, and depressed." HISTORY OF PRESENT ILLNESS Mr. Moran is a 36-year-old white male with a long history of dual diagnosis of mood disorder and substance abuse, who was self-referred to the hospital stating that he is depressed and has been having suicidal thoughts and he is a drug addict and "my mom is in [facility] and the stress of her dying is getting to me and my sister overdosed 3 days ago and I've mental illnesses and I'm not on my medicines and the last time I used was 2 a.m. in the morning, I used ice, alcohol, heroin, cannabis, and I've attempted suicide in the past and I overdosed on Tylenol and I've a present plan to overdose, I'm really depressed and I need help." He does report increasing depression, anxiety, feelings of hopelessness and helplessness, and suicidal ideation with intent and plan stating "I want to overdose and kill myself." He was as such seen to be a significant danger to self and therefore recommendation for inpatient level of care was made and the patient was medically cleared at the [facility] and then transferred to us. SUBSTANCE ABUSE HISTORY The patient reports extensive history of substance abuse and dependence including alcohol, cannabis, cocaine, acid, opioids, inhalants, amphetamines, and benzodiazepines, and currently he has been mixing drugs including alcohol, methamphetamine, and opioids, but opioids, particularly heroin has been his drug of choice. PAST PSYCHIATRIC HISTORY The patient has had a history of numerous and multiple inpatient psychiatric hospitalizations at [facility] with poor history of compliance with any and all forms of treatments including medication and outpatient followup, and review of the medical records indicated that he was on a combination of Seroquel and Paxil, but has been off his medication and as such has been decompensating. Unit #: [id number] #: [id number] Patient: GEORGIA HUERTA III PAST MEDICAL HISTORY Hepatitis C. ALLERGIES Haldol and naproxen. PERSONAL AND SOCIAL HISTORY A 36-year-old white male who reports that he is single, unemployed, and has been living with his parents and has poor social support system. MENTAL STATUS EXAMINATION Young white male who was casually dressed with fair personal hygiene, appears to be in no acute distress or discomfort. He was awake and alert on interaction with intact orientation to time, place, and person. His mood was anxious and depressed with a congruent affect. His speech was slow and restricted in content. He reports having suicidal ideations, but denies any homicidal ideations, and also denies any auditory or visual hallucinations. His insight and judgment remain significantly impaired. DIAGNOSTIC IMPRESSION Psychiatric: Major depressive disorder, recurrent, moderate, without psychotic features; opioid dependence, moderate and acute withdrawals; alcohol dependence, moderate; methamphetamine dependence, moderate. Medical: Hepatitis C. Stressors: Moderate psychosocial stressors. TREATMENT PLAN 1. The patient has presented with a history of substance abuse and mood disorder and has been decompensating and will need inpatient hospitalization for detoxification, safety, and stabilization. We will start him back on his home medications. We will adjust the medications and monitor his response. 2. Supportive therapy was provided to the patient. 3. Safe, structured, and nourishing environment will be provided. ESTIMATED LENGTH OF STAY 5 to 7 days. ABILITY TO HELP SELF Limited. WILLINGNESS TO HELP SELF The patient appears to be willing to help self. STRENGTHS 1. Communicative. 2. Cooperative. PROBLEMS 1. Chronic dysphoric symptoms. 2. Chronic chemical dependency. DISCHARGE CRITERIA This will be contingent upon the patient's ability to go through detox without having any significant withdrawal symptoms and his ability to stay safe to himself, particularly after discharge from the hospital. Unit #: [id number] #: [id number] Patient: GEORGIA HUERTA III Dictated by... Carl Cabrales/mary TD: 11/06/2016 06:48 JOB #: [id number] PSYCHIATRIC ASSESSMENT Page 1 of 1 X Sid Caro MD PSYCHIATRIC ASSESSMENT
--- NOTE | ~2016-11-05 | PN ---
Unit #: [id number] #: [id number] Patient: GEORGIA CA III [id number] [facility] [address] [place] [address] [id number] I MR#: [id number] NAME: GEORGIA CA III ROOM: [facility] Age: 36 Sex: M Admission Date: 11/05/2016 : 1980 Attending Physician: Sid Caro M.D. Admitting Physician: Sid Caro M.D. Primary Care Physician: Primary Care Physician Ruth BARNETT NOTES DATE OF SERVICE 11/08/2016 DISCUSSION Mr. Ca is a 36-year-old white male with substance abuse and mood disorder who was seen today. Chart was reviewed and case was discussed with the staff who reported the patient remains isolative and seclusive to himself with persistent depressive symptoms. Meanwhile, he has been cooperative with the treatment recommendations and has been taking the medications and tolerating them fairly well. MENTAL STATUS EXAMINATION Young white male who is casually dressed with fair personal hygiene, appears to be in slight distress or discomfort. He was awake and alert with intact orientation. His mood is anxious and depressed with congruent affect. His speech is slow and restricted in content. He reports having suicidal ideation and denies any homicidal ideations and also denies any auditory or visual hallucinations. His insight and judgment remain slightly impaired. TREATMENT PLAN 1. We will continue him on his current treatment protocol, and we will monitor his response to medications and make further adjustments as needed. 2. We will continue to follow up. Dictated by... Carl Cabrales/angus TD: 11/09/2016 05:08 JOB #: [id number] Unit #: [id number] #: [id number] Patient: GEORGIA CA III [facility] PROGRESS NOTES Page 1 of 1 X Sid Caro MD PROGRESS NOTE
--- NOTE | ~2016-11-05 | CO ---
Unit #: [id number] #: [id number] Patient: GEORGIA HUERTA III [id number] [facility] [address] [place] [address] [id number] I MR#: [id number] NAME: GEORGIA HUERTA III ROOM: [facility] Age: 36 Sex: M Admission Date: 11/05/2016 : 1980 Attending Physician: Sid Caro M.D. Primary Care Physician: Primary Care Physician No Consultation Date: 11/06/2016 CONSULTATION REPORT REASON FOR CONSULT Right leg swelling and pain. SUBJECTIVE Patient endorses that he has been having pain in the back of his right calf up into his right knee for a few days. He denies any fever. He denies any swelling. OBJECTIVE Patient is a 36-year-old man who is awake, alert, in no acute distress. VITAL SIGNS: Temperature 98.7, heart rate 66, respirations 16, blood pressure 107/67. CHEST: Lungs clear. HEART: Regular rate and rhythm. EXTREMITIES: No erythema or edema of his right lower extremity. Patient does endorse right leg pain with walking. ASSESSMENT Right leg pain. PLAN At this time, will add ibuprofen. Again, there is no signs or symptoms of infection, swelling, erythema or edema. Feel free to consult again if needed. Dictated by... Faye Amin A.P.R.N. for Ovi Flores M.D. AM/duncan TD: 11/06/2016 16:42 JOB #: [id number] Unit #: [id number] #: [id number] Patient: GEORGIA HUERTA III CONSULTATION REPORT Page 1 of 1 X Faye Amin APRN X CONSULTATION REPORT
== END 2016-11-09 10:00 | DRG 885 ==
LOC: P1E 15:03
PROC: HZ2ZZZZ Detoxification Services for Substance Abuse Treatment (ICD-10-PCS; principal; 2016-11-05)
DX: F33.1 Major depressive disorder, recurrent, moderate (principal); F15.20 Other stimulant dependence, uncomplicated; R45.851 Suicidal ideations; F11.23 Opioid dependence with withdrawal; F10.20 Alcohol dependence, uncomplicated; B19.20 Unspecified viral hepatitis C without hepatic coma; I10 Essential (primary) hypertension; K21.9 Gastro-esophageal reflux disease without esophagitis; J44.9 Chronic obstructive pulmonary disease, unspecified; I25.2 Old myocardial infarction; Z88.5 Allergy status to narcotic agent; Z88.6 Allergy status to analgesic agent; F17.210 Nicotine dependence, cigarettes, uncomplicated; M79.604 Pain in right leg; F41.9 Anxiety disorder, unspecified
CPT/HCPCS: 86592

== ENCOUNTER 2016-12-30 09:00 | Inpatient (IN) | payer OTHER ==
[~2016-12-30] VITALS: Ht 180.3 cm; Wt 83.0 kg
--- NOTE | ~2016-12-30 | PN ---
Unit #: [id number] #: [id number] Patient: GEORGIA HUERTA III [id number] [facility] [address] [place] [address] [id number] MR#: [id number] NAME: GEORGIA HUERTA III ROOM: [facility] Age: 36 Sex: M Admission Date: 12/30/2016 : 1980 Attending Physician: Sid Caro M.D. Admitting Physician: Sid Caro M.D. Primary Care Physician: Carl Bahena PROGRESS NOTES DATE 01/04/2017 DISCUSSION Mr. Gimenez is a 36-year-old, white male who was seen today and chart was reviewed and case was discussed with the staff. He has been anxious, withdrawn and rather seclusive to himself. Meanwhile, he has been cooperative with treatment recommendations. He has been taking medications and tolerating them fairly well with no reported side effects. MENTAL STATUS EXAM Young white male who was casually dressed with fair personal hygiene, appears to be in no acute distress or discomfort. He was awake and alert on interaction with intact orientation. His mood was anxious with congruent affect. He denies any suicidal or homicidal ideation. His insight and judgement remains slightly impaired. TREATMENT PLAN 1. We will continue him on his current medications and treatment protocol. We will monitor his response to the medication and make further adjustments as needed. 2. We will continue to follow up. Dictated by... Carl Cabrales/tita TD: 01/05/2017 04:14 JOB #: [id number] Unit #: [id number] #: [id number] Patient: GEORGIA HUERTA III PROGRESS NOTES Page 1 of 1 X Sid Caro MD X PROGRESS NOTE
--- NOTE | ~2016-12-30 | HP ---
Unit #: [id number] #: [id number] Patient: HUGO HUERTA III [id number] [place] [address] [id number] I MR#: [id number] NAME: HUGO HUERTA III ROOM: [facility] Age: 36 Sex: M Admission Date: 12/30/2016 : 1980 Attending Physician: Sid Caro M.D. Admitting Physician: Sid Caro M.D. Primary Care Physician: Joselo Jensen M.D. HISTORY AND PHYSICAL HISTORY OF PRESENT ILLNESS Hugo is a 36 year old admitted to [facility] because of his continued polysubstance abuse. PAST MEDICAL HISTORY 1. Long history of polysubstance abuse to include IV drugs. 2. Degenerative disc disease. a. Chronic back pain. 3. Hepatitis C. 4. High blood pressure. 5. History of Tourette's syndrome. 6. GERD. 7. COPD. 8. History of drug induced DC by patient's report. PAST SURGICAL HISTORY 1. Fractured right ankle with ORIF. 2. Bilateral wrist fractures and boxer's fracture with ORIF. ALLERGIES Haldol, ibuprofen (itching), naproxen. SOCIAL HISTORY Smokes 2 packs per day. Has a long history of polysubstance abuse to include IV drugs. FAMILY HISTORY Medically noncontributory. REVIEW OF SYSTEMS CONSTITUTIONAL: No fever or chills. HEENT: Denies any sore throat, ear pain or runny nose. CARDIOVASCULAR: Denies chest pain, irregular heart rhythm or palpitations. CHEST: Denies shortness of breath or cough. No hemoptysis. GASTROINTESTINAL: Denies nausea, vomiting, diarrhea or chronic constipation. ENDOCRINE: Denies history of increased thirst or urination. No recent significant weight loss or gain. GENITOURINARY: Denies dysuria, frequency, or hematuria. SKIN: Denies any rashes. HEMATOLOGIC: Denies history of increased bleeding or bruising. MUSCULOSKELETAL: Denies any hot, swollen joints. No generalized muscle pain. Unit #: [id number] #: [id number] Patient: HUGO HUERTA III NEUROLOGIC: Denies problems with vision or speech. No frequent, severe headaches. No numbness, tingling or weakness in any extremities. Denies loss of bladder or bowel control. CURRENT MEDICATIONS 1. Detox protocol. 2. Desyrel 100 mg q.h.s. 3. Paxil 40 mg q.h.s. 4. Motrin p.r.n. PHYSICAL EXAMINATION GENERAL: Alert, well-nourished, in no apparent distress. VITAL SIGNS: Blood pressure 126/86, heart rate 80, respirations 16, temperature 98.6. WEIGHT: 183. HEIGHT: 5 feet 11 inches. SKIN: Warm and dry without rash or lesion. HEENT: Normocephalic. TMs not viewed. Oral and nasal passages clear. Conjunctivae clear. PERRLA. EOMs intact. NECK: Supple without lymphadenopathy or thyromegaly. HEART: Regular rate and rhythm without murmur. LUNGS: Clear. ABDOMEN: Soft, nontender. : Not done. EXTREMITIES: No evidence of cyanosis, clubbing or edema. Moves all without focal deficit. NEUROLOGICAL: Grossly within normal limits. Cranial Nerves: II: Visual duvall are intact. III, IV AND : Extraocular movements are intact. Pupils are equal, round and reactive to light. V: Facial sensation is grossly normal. VII: Facial movements and expression are normal. VIII: Auditory acuity grossly intact. IX, X: Uvula is midline. Phonation is normal. XI: Patient shrugs shoulders and turns head normally. XII: Tongue protrudes in the midline. Sensory and Motor Function: Sensory and motor sensation is grossly normal. Motor: moves all extremities well. Coordination: Gait is normal. Deep Tendon Reflexes: Intact. IMPRESSION Psychiatric admission. RECOMMENDATIONS PSYCHIATRIC: Per psychiatrist. MEDICAL: See no contraindication to participate in facility's activities. MEDICAL PROGNOSIS Good. MEDICAL CONDITION Stable. Dictated by... Isidra Bustos P.A.-C. for Ovi Flores M.D. Unit #: [id number] #: [id number] Patient: HUGO HUERTA AMBER RIZO/duncan TD: 12/30/2016 23:04 JOB #: [id number] HISTORY AND PHYSICAL Page 1 of 1 X Isidra Bustos X HISTORY AND PHYSICAL
--- NOTE | ~2016-12-30 | DS ---
Unit #: [id number] #: [id number] Patient: GEORGIA CA III [id number] [facility] [address] [place] [address] [id number] I MR#: [id number] NAME: GEORGIA CA III ROOM: 75 Age: 36 Sex: M Admission Date: 12/30/2016 : 1980 Discharge Date: 01/05/2017 Attending Physician: Sid Caro M.D. Primary Care Physician: Joselo Jensen M.D. DISCHARGE SUMMARY IDENTIFYING DATA Mr. Ca is a 36-year-old single white male, who is a resident of [place], [place], and is known to us from previous encounter, was self-referred to the hospital on a voluntary basis. DISCHARGE DIAGNOSES Psychiatric: Opioid dependence, moderate and acute withdrawals; methamphetamine dependence, moderate; opioid-induced mood disorder. Medical: None. Stressors: Moderate psychosocial stressors. HISTORY OF PRESENT ILLNESS Please see initial psychiatric evaluation for details. PAST PSYCHIATRIC HISTORY Please see initial psychiatric evaluation for details. PAST MEDICAL HISTORY Please see initial psychiatric evaluation for details. HOSPITAL COURSE The patient was admitted to the adult chemical dependency unit at [facility] and was oriented to the hospital environment. Routine p.r.n. medications were initiated, and he was started on the detox protocol and was closely monitored. He was anxious, withdrawn, and rather seclusive to himself, though was calm and cooperative with treatment recommendation and was taking medications regularly and was tolerating them fairly well and was able to show a decent and therapeutic response and as such, it was decided that he will be discharged home and will continue treatment on an outpatient basis. DISCHARGE MEDICATIONS Paxil 40 mg a day for depression. DISCHARGE CONDITION Stable. PROGNOSIS Fair. Dictated by... Sid Caro M.D. Unit #: [id number] #: [id number] Patient: GEORGIA CA III IAA/modl TD: 01/05/2017 07:44 JOB #: [id number] DISCHARGE SUMMARY Page 1 of 1 X Sid Caro MD X DISCHARGE SUMMARY
--- NOTE | ~2016-12-30 | PN ---
Unit #: [id number] #: [id number] Patient: GEORGIA CA III [id number] [facility] [address] [place] [address] [id number] I MR#: [id number] NAME: GEORGIA CA III ROOM: [facility] Age: 36 Sex: M Admission Date: 12/30/2016 : 1980 Attending Physician: Sid Caro M.D. Admitting Physician: Sid Caro M.D. Primary Care Physician: Carl Bahena PROGRESS NOTES DATE 01/02/2017 DISCUSSION Mr. Ca is a 36-year-old white male who was seen today and chart was reviewed and case was discussed with the staff. He has been anxious, withdrawn and rather seclusive to himself. Meanwhile, he has been cooperative with treatment recommendations and has been taking medications and tolerating them fairly well with no reported side effects. MENTAL STATUS EXAMINATION Young white male who was casually dressed with fair personal hygiene and appears to be in no acute distress or discomfort. He was awake and alert with impaired attention and concentration. His mood was anxious and depressed with congruent affect. He reports having suicidal ideations but denies any homicidal ideations and also denies any auditory or visual hallucinations. His insight and judgement remains slightly impaired. TREATMENT PLAN 1. treatment protocol. Will monitor his response to the medications and make further adjustments as needed. 2. Will continue to follow up. Dictated by... Carl Cabrales/duncan TD: 01/02/2017 20:24 JOB #: [id number] Unit #: [id number] #: [id number] Patient: GEORGIA CA III [facility] PROGRESS NOTES Page 1 of 1 X Sid Caro MD PROGRESS NOTE
--- NOTE | ~2016-12-30 | PN ---
Unit #: [id number] #: [id number] Patient: GEORGIA CA III [id number] [facility] [address] [place] [address] [id number] I MR#: [id number] NAME: GEORGIA CA III ROOM: [facility] Age: 36 Sex: M Admission Date: 12/30/2016 : 1980 Attending Physician: Sid Caro M.D. Admitting Physician: Sid Caro M.D. Primary Care Physician: Carl Bahena PROGRESS NOTES DATE January 03, 2017 DISCUSSION Mr. Ca is a 36-year-old white male, who was seen today and chart was reviewed and the case was discussed with the staff. He remains anxious, withdrawn, depressed, and rather seclusive to himself. Meanwhile, he has been cooperative with the treatment recommendations and he has been taking the medications and tolerating them fairly well with no reported side effects. MENTAL STATUS EXAMINATION Young white male, who was casually dressed with fair personal hygiene and appears to be in no acute distress or discomfort. He was awake and alert on interaction with intact orientation. His mood is anxious with a congruent affect. He denies any suicidal or homicidal ideations, and also denies any auditory or visual hallucinations. His insight and judgment remain slightly impaired. TREATMENT PLAN 1. We will continue him on his current medications and treatment protocol, and will monitor his response to the medications, and make further adjustments as needed. 2. We will continue to followup. Dictated by... Carl Cabrales/tab TD: 01/04/2017 09:00 JOB #: [id number] Unit #: [id number] #: [id number] Patient: GEORGIA CA III [facility] PROGRESS NOTES Page 1 of 1 X Sid Caro MD PROGRESS NOTE
--- NOTE | ~2016-12-30 | CO ---
Unit #: [id number] #: [id number] Patient: GEORGIA HUERTA III [id number] [place] [address] [id number] I MR#: [id number] NAME: GEORGIA HUERTA III ROOM: [facility] Age: 36 Sex: M Admission Date: 12/30/2016 : 1980 Attending Physician: Sid Caro M.D. Primary Care Physician: Joselo Jensen M.D. Consultation Date: 12/30/2016 CONSULTATION REPORT KAYCEE Arias is a 36-year-old who reported to nursing staff that he had blood in his urine. He denied any urgency, frequency, or dysuria. He has had no recorded increased temperatures. Urine provided to us on 12/31/2016, was negative for blood, wbc's, and bacteria. ASSESSMENT Normal urine. PLAN No Rx. Dictated by... Isidra Bustos P.A.-C. for Carl Santos/mary TD: 01/04/2017 23:29 JOB #: [id number] CONSULTATION REPORT Page 1 of 1 X Isidra Bustos CONSULTATION REPORT
--- NOTE | ~2016-12-30 | PN ---
Unit #: [id number] #: [id number] Patient: GEORGIA HUERTA III [id number] [facility] [address] [place] [address] [id number] I MR#: [id number] NAME: GEORGIA HUERTA III ROOM: [facility] Age: 36 Sex: M Admission Date: 12/30/2016 : 1980 Attending Physician: Sid Caro M.D. Admitting Physician: Sid Caro M.D. Primary Care Physician: Carl Bahena PROGRESS NOTES DATE OF SERVICE 01/01/2017 DISCUSSION Mr. Huerta is a 36-year-old white male who was seen today. Chart was reviewed and case was discussed with the staff. He has been anxious, withdrawn, and rather seclusive to himself. Meanwhile, he has been cooperative with the treatment recommendations and has been taking the medications and tolerating them fairly well. MENTAL STATUS EXAMINATION Young white male who is casually dressed with fair personal hygiene, appears to be in no acute distress or discomfort. The patient was awake and alert on interaction with intact orientation. His mood is anxious and depressed with congruent affect. He denies any suicidal or homicidal ideations. His insight and judgment remain slightly impaired. TREATMENT PLAN 1. We will continue him on his current medications and treatment protocol. We will monitor his response to medications and make further adjustments as needed. 2. We will continue to follow up. Dictated by... Sid Caro M.D. IAA/bzg TD: 01/01/2017 09:01 JOB #: [id number] [facility]IA[facility] PROGRESS NOTES Page 1 of 1 X Sid Caro MD X PROGRESS NOTE
--- NOTE | ~2016-12-30 | PN ---
Unit #: [id number] #: [id number] Patient: GEORGIA CA III [id number] [facility] [address] [place] [address] [id number] I MR#: [id number] NAME: GEORGIA CA III ROOM: [facility] Age: 36 Sex: M Admission Date: 12/30/2016 : 1980 Attending Physician: Sid Caro M.D. Admitting Physician: Sid Caro M.D. Primary Care Physician: Carl Bahena PROGRESS NOTES DATE 12/31/2016 DISCUSSION Mr. Ca is a 36-year-old white male with substance abuse and mood disorder who was seen today and chart was reviewed and case was discussed with the staff. He has been anxious, withdrawn and rather seclusive to himself. Meanwhile, he has been cooperative with treatment recommendations and has been taking medications and tolerating them fairly well with no reported side effects. MENTAL STATUS EXAMINATION Young white male who was casually dressed with fair personal hygiene and appears to be in distress and discomfort. He was awake and alert on interaction with intact orientation. His mood was anxious and depressed with congruent affect. His speech is slow and goal-directed. He denies any suicidal or homicidal ideation. His insight and judgement remains slightly impaired. TREATMENT PLAN 1. Will continue on his current medications and treatment protocol. Will monitor his response to the medications and make further adjustments as needed. 2. Will continue to follow up. Dictated by... Carl Cabrales/duncan TD: 12/31/2016 18:16 JOB #: [id number] Unit #: [id number] #: [id number] Patient: GEORGIA CA III [facility] PROGRESS NOTES Page 1 of 1 X Sid Caro MD PROGRESS NOTE
--- NOTE | ~2016-12-30 | PA ---
Unit #: [id number] #: [id number] Patient: GEORGIA HUERTA III [id number] [facility] [address] [place] [address] [id number] I MR#: [id number] NAME: GEORGIA HUERTA III ROOM: P175 Age: 36 Sex: M Admission Date: 12/30/2016 : 1980 Date of Assessment: 12/30/2016 Attending Physician: Sid Caro M.D. Admitting Physician: Sid Caro M.D. Primary Care Physician: Joselo Jensen M.D. PSYCHIATRIC ASSESSMENT DATE OF SERVICE 12/30/2016. IDENTIFYING DATA Mr. Perez is a 36-year-old single white male, who is a resident of [place], [place], and he is known to us from previous encounter, and was self-referred to the hospital on a voluntary basis. CHIEF COMPLAINT "I've been drinking and using heroin." HISTORY OF PRESENT ILLNESS Mr. Perez is a 36-year-old white male with extensive history of substance abuse and dependence, who has been a frequent flyer to inpatient hospitalization and refuses to do any treatment program, and as such, relapses soon after he leaves the hospital and then comes right back to the hospital and once again, he brought himself to the hospital stating using heroin and methamphetamine "my mom and dad sick and 2 children not with me and I can't do outpatient and I told Dr. Crao that and he does not understand me." He indicates that 2 children have been with the cousin for the past 3 weeks and he has been homeless for the past month and he got out of half-way on 09/02/2016 and he was doing good, and he found out that his girlfriend got and that "set me off." He reports that he has been depressed and sad and started using drugs again and he started using methamphetamine on 10/19/2016 and he is using up to 2 g IV daily and stated that he also has been used heroin 3 weeks ago after being abstinent for 3 years and has been using half a gram intravenous heroin and last use of meth and heroin was yesterday. He reports withdrawal symptoms with irritability, anxiety, nausea, depression, and feelings of hopelessness and helplessness, and thoughts of suicide stating that he has been thinking about using his knives and stabbing himself. He stated the security took his [facility] and wants to have them back when he leaves and stated being depressed and having suicidal thoughts and "I got to get clean or I will lose kids. I'm going to kill myself, I tried to do a few days ago and I took all my drugs at home, I got dizzy and lightheaded." He does report feelings of hopelessness and helplessness, and suicidal ideations and as such, recommendation for inpatient level of care for safety and stabilization was made and the patient was transferred to us. SUBSTANCE ABUSE HISTORY The patient has history of alcohol, cannabis, cocaine, acid, opioids, inhalants, methamphetamine abuse, and currently opioids and Unit #: [id number] #: [id number] Patient: GEORGIA HUERTA III methamphetamine appears to be his drug of choice. PAST PSYCHIATRIC HISTORY The patient has had history of numerous and multiple inpatient psychiatric hospitalizations at [facility] in addition to being at [facility] and refuses to do any outpatient treatment program and as such, remains at poor prognosis. PAST MEDICAL HISTORY The patient's medical history is insignificant. ALLERGIES Haldol and naproxen. PERSONAL AND SOCIAL HISTORY A 36-year-old white male, who reports that he is single, unemployed, and essentially homeless and has poor social support system. MENTAL STATUS EXAMINATION Young white male who was casually dressed with fair personal hygiene, appears to be in no acute distress or discomfort. He was awake and alert on interaction with intact orientation to time, place, and person. His mood was anxious and depressed with a congruent affect. His speech was slow and restricted in content. His thought processes were disorganized with some looseness of associations and paranoid ideations. His insight and judgment remain significantly impaired. DIAGNOSTIC IMPRESSION Psychiatric: Opioid dependence, moderate and acute withdrawals; methamphetamine dependence, moderate; opioid-induced mood disorder. Medical: None. Stressors: Moderate psychosocial stressors. TREATMENT PLAN 1. The patient has presented with history of substance abuse and mood disorder, and has been decompensating and will need inpatient hospitalization for detoxification, safety, and stabilization. We will start him back on his home medications and detox protocol. We will monitor his response and make further adjustments as needed. 2. Supportive therapy was provided to the patient. 3. Safe, structured, and nourishing environment will be provided. ESTIMATED LENGTH OF STAY 5 to 7 days. ABILITY TO HELP SELF Limited. WILLINGNESS TO HELP SELF The patient appears to be willing to help self. STRENGTHS 1. Communicative. 2. Cooperative. PROBLEMS 1. Chronic dysphoric symptoms. 2. Chronic chemical dependency. 3. Poor social support system. Unit #: [id number] #: [id number] Patient: GEORGIA HUERTA III DISCHARGE CRITERIA This will be contingent upon the patient's ability to show resolution of his depression and anxiety and his ability to go through detox without having any significant withdrawal symptoms. Dictated by... Carl Cabrales/mary TD: 12/31/2016 22:28 JOB #: [id number] PSYCHIATRIC ASSESSMENT Page 1 of 1 X Sid Caro MD X PSYCHIATRIC ASSESSMENT
[2016-12-31 10:03] LABS: BASOPHIL% 0.6 % (0-2.5); EOSINOPHIL# 0.2 X10e3 (0-0.7); EOSINOPHIL% 3.4 % (0.0-7.0); HEMOGLOBIN 13.2 gm/dL (13.0-16.0); LYMPHOCYTE# 3.2 X10e3 (1.0-3.5); LYMPHOCYTE% 54.5 % (17.0-45.0); MEAN CELL VOLUME 84.9 FL (83-96); MEAN CORPUSCULAR HGB CONC 32.9 g/dL (30-36); MEAN PLATELET VOLUME 8.2 FL (6.5-11.5); MONOCYTE# 0.4 X10e3 (0-1.0); MONOCYTE% 6.9 % (3.0-12.0); NEUTROPHIL% 34.6 % (40-75); PLATELET COUNT 311 X10e3 (140-420); RED BLOOD COUNT 4.71 X10e (3.90-5.60); RED CELL DISTRIBUTION WIDTH 13.7 % (11.0-15.5); WHITE BLOOD COUNT 5.9 X10e3 (4.0-10.5)
[2016-12-31 10:07] LABS: DIFF IND YES
[2016-12-31 10:38] LABS: PLATELET ESTIMATE NORMAL (NORMAL)
[2016-12-31 10:40] LABS: ALBUMIN SERUM 3.2 g/dL (3.5-5.0); BILIRUBIN,TOTAL 0.5 mg/dL (0.2-2.0); BUN/CREATININE RATIO 11.66; CREATININE SERUM 0.6 mg/dL (0.6-1.4); GLOM FILT RATE Estimated 130.3 mL/min (>60); PROTEIN TOTAL SERUM 6.2 g/dL (6.0-8.3)
[2016-12-31 10:47] LABS: CALCIUM SERUM 8.7 mg/dL (8.4-10.2); POTASSIUM 4.3 mmol/L (3.5-5.1)
[2017-01-01 10:50] LABS: URINE APPEARANCE CLEAR; URINE BILIRUBIN NEG (NEG); URINE BLOOD NEG (NEG); URINE COLOR YELLOW; URINE GLUCOSE NEG (NEG); URINE KETONE NEG (NEG); URINE LEUKOCYTE ESTERASE NEG (NEG); URINE NITRATE NEG (NEG); URINE PH 6.5 (5-8); URINE PROTEIN NEG (NEG); URINE SPECIFIC GRAVITY 1.013 (1.003-1.035)
[2017-01-01 11:02] LABS: AMPHETAMINE POS (NEG); BARBITURATES NEG (NEG); BENZODIAZEPINES NEG (NEG); COCAINE NEG (NEG); MARIJUANA NEG (NEG); OPIATES NEG (NEG); TRICYCLIC ANTIDEPRESSANTS NEG (NEG); U METHADONE NEG (NEG)
== END 2017-01-05 09:15 | DRG 897 ==
LOC: P1E 11:49
PROVIDERS: Psychiatry & Neurology Psychiatry
PROC: HZ2ZZZZ Detoxification Services for Substance Abuse Treatment (ICD-10-PCS; principal; 2016-12-30)
DX: F11.23 Opioid dependence with withdrawal (principal); F15.20 Other stimulant dependence, uncomplicated; I10 Essential (primary) hypertension; F11.24 Opioid dependence with opioid-induced mood disorder; K21.9 Gastro-esophageal reflux disease without esophagitis; J44.9 Chronic obstructive pulmonary disease, unspecified; Z88.8 Allergy status to other drugs, medicaments and biological substances
CPT/HCPCS: 80053; 80307; 81003; 85025; 86592; 87806

== ENCOUNTER 2017-01-15 09:28 | Observation (INO) | payer OTHER ==
[~2017-01-15] VITALS: Ht 180.3 cm; Wt 81.2 kg
--- NOTE | ~2017-01-15 | CR72 ---
[facility] A Service of [facility] & [facility] RADIOLOGY TEXT RESULTS PATIENT: GEORGIA HUERTA III LOCATION: [facility] : [birth year] UNIT #: [id number] AGE: [address]: Cristian Thompson DO SEX: M ORDER DR: [id number] [facility] [address] [place], [place] [address] [id number] E MR#: [id number] Acc #: [id number] NAME: GEORGIA HUERTA III : 1980 SEX: M STUDY DATE/TIME: 01/15/2017 10:33 UNIT: [facility] ROOM: STUDY DESCRIPTION: CR Chest Single View Portable Attending Physician: Cristian Thompson D.O. Ordering Physician: Cristian Thompson D.O. Primary Care Physician: No Primary Care Physician MEDICAL IMAGING REPORT This report is preliminary unless electronic signature is present EXAM Single view chest, 01/15/2017. COMPARISON Chest, 2 views, 02/20/2014. HISTORY Synovial today. FINDINGS Frontal view of the chest was obtained. No acute cardiopulmonary disease. Stable right upper lobe calcifications are noted, suggestive of old granulomatous disease. Heart, mediastinum, and bones are unremarkable. Dictated by... Charline Morin M.D. THIS IS AN ELECTRONICALLY VERIFIED REPORT Charline Morin M.D. at 01/15/2017 4:31 PM CPR/ashu TD: 01/15/2017 16:18 JOB #: [id number] MEDICAL IMAGING REPORT Page 1 of 1 COPY
--- NOTE | ~2017-01-15 | CT16 ---
[facility] A Service of [facility] & [facility] RADIOLOGY TEXT RESULTS PATIENT: GEORGIA HUERTA III LOCATION: [facility] 313-01 : [birth year] UNIT #: [id number] AGE: [address]: SHERRIE IBANEZ MD SEX: M ORDER DR: [id number] [facility] [address] [place], [place] [address] [id number] I MR#: [id number] Acc #: [id number] NAME: GEORGIA HUERTA III : 1980 SEX: M STUDY DATE/TIME: [facility] ROOM: [facility] STUDY DESCRIPTION: CT Angio Chest for PE Attending Physician: Sherrie Ibanez M.D. Ordering Physician: Cristian Thompson D.O. Primary Care Physician: Primary Care Physician No MEDICAL IMAGING REPORT This report is preliminary unless electronic signature is present EXAM CT angiogram of the chest for pulmonary embolism 01/15/2017 1152 hours HISTORY 36-year-old man with shortness of air with mild activity for a few days. Edema in the right wrist and left lower extremity for 2 days with dizziness and syncope today. D-dimer elevated at 767. Evaluate for pulmonary embolism. COMPARISON 07/02/[address] angiographic images were obtained from the thoracic inlet through the adrenal glands. 3-D sagittal and coronal reconstructions were performed. Contrast was Isovue-370 80 mL IV. Total exam DLP 549 mGy - cm. This CT exam was performed with one or more of the following radiation dose reduction techniques: automatic exposure control, adjustment of mA and/or kV according to patient size, and iterative reconstruction. FINDINGS Images through the thoracic inlet demonstrate no discrete thyroid lesion or thyromegaly. No adenopathy. Images through the chest are degraded by respiratory motion artifacts. Timing of the contrast bolus is slightly suboptimal as there is opacification of the aorta as well as the pulmonary veins. The aorta appears normal. The main pulmonary arteries are normal. No filling defects are seen in the pulmonary arteries. The very peripheral vessels at the lung bases are somewhat difficult to assess. There is no suspicion of pulmonary embolism. The lungs are clear. Previous ground-glass nodule at the right lung base [facility] A Service of [facility] & [facility] RADIOLOGY TEXT RESULTS PATIENT: GEORGIA HUERTA III [facility]ATION: [facility] [id number] : 82 UNIT #: [id number] AGE: [address]: SHERRIE IBANEZ MD SEX: M ORDER DR: seen on 07/02/2014 has resolved. There is no pleural fluid. Limited views through the upper abdomen demonstrate focal fatty change in the liver adjacent to the falciform ligament. The gallbladder is contracted but no stones are seen. The adrenal glands are normal. IMPRESSION 1. The exam is degraded by respiratory motion artifact and suboptimal timing of the contrast bolus. No pulmonary embolism is seen. It is somewhat difficult to assess the very peripheral vessels particularly in the lower lobes but there is no suspicion of pulmonary embolism. 2. Normal aorta. 3. The lungs are clear and previous nodular density at the right lung base seen on 07/02/2014 has resolved. Dictated by... Patsy Flowers M.D. THIS IS AN ELECTRONICALLY VERIFIED REPORT Patsy Flowers M.D. at 01/15/2017 9:21 PM SMM/to TD: 01/15/2017 17:58 JOB #: [id number] MEDICAL IMAGING REPORT Page 1 of 1 COPY
--- NOTE | ~2017-01-15 | EKG ---
PATIENT: GEORGIA HUERTA UNIT #: [id number] Ventricular Rate: 80 BPM Atrial Rate: 80 BPM P-R Interval: 156 ms QRS Duration: 100 ms Q-T Interval: 402 ms QTC Calculation(Bezet): 463 ms P [place]: 67 degrees Calculated R [place]: 56 degrees Calculated T [place]: 52 degrees Diagnosis Line: Normal sinus rhythm Diagnosis Line: Normal ECG Diagnosis Line: Diagnosis Line: Confirmed by WALESKA VO MD ([id number]) on Diagnosis Line: 01/15/2017 2:46:57 PM INTERPRETING MD: GILDA QUINTANILLA
--- NOTE | ~2017-01-15 | HP ---
Unit #: [id number] #: [id number] Patient: GEORGIA HUERTA III [id number] [address] [place], [place] [address] [id number] E MR#: [id number] NAME: GEORGIA HUERTA ROOM: Age: 36 Sex: M Admission Date: 01/15/2017 : 1980 Attending Physician: Cristian Thompson D.O. Primary Care Physician: No Primary Care Physician HISTORY AND PHYSICAL CHIEF COMPLAINT Near syncopal episode. HISTORY OF PRESENT ILLNESS The patient is a 36-year-old male with a history of a long history of polysubstance abuse to include IV drug, was recently discharged from [facility] on January 05, presented to the emergency room with the complaint of the near syncopal episode. The patient stated that patient was clean for a few days and then he started using the IV drug abuse and wants to get detoxed again. The patient stated that the patient had a near syncopal episode at home and then he did not lose conscious. Denies any headache. Denies any fever, chills, nausea, vomiting. Positive for intermittent chest pain. However, at the time of examination, no chest pain. PAST MEDICAL HISTORY 1. History of polysubstance abuse. 2. Hepatitis C. 3. Hypertension. 4. History of Tourette syndrome. 5. GERD. 6. COPD. 7. History of drug-induced [place]. PAST SURGICAL HISTORY 1. Fractured right ankle with ORIF. 2. Bilateral wrist fractures and boxer's fractures with ORIF. ALLERGIES Haldol, ibuprofen, Naproxen. SOCIAL HISTORY Smokes two packs per day. Has a long history of polysubstance abuse to include IV drugs. FAMILY HISTORY Reviewed and none. HOME MEDICATIONS None. REVIEW OF SYSTEMS Positive for near syncopal episode. Positive for IV drug abuse. Positive for the intermittent chest pain. Denies any nausea or vomiting. Denies headache. Denies short of breath or cough. All other systems reviewed Unit #: [id number] #: [id number] Patient: GEORGIA HUERTA III and none. PHYSICAL EXAMINATION GENERAL: Patient is lying on the bed not in acute distress. VITAL SIGNS: Temperature 97.6, pulse 80, respiratory rate 18, blood pressure 111/67, saturating 99% on room air. HEENT: Head atraumatic, normocephalic. Pupils equal, round, and reactive to light and accommodation. Extraocular movements are intact. NECK: Supple. LUNGS: Decreased air entry at the bases. HEART: Regular rate and rhythm. ABDOMEN: Soft. Positive bowel sounds. EXTREMITIES: Positive for track loyd. Multiple track loyd on the upper extremities and lower extremities. NEUROLOGIC: Awake and alert. No gross focal motor deficit. DIAGNOSTIC STUDIES LABORATORY: WBC 8.1, hemoglobin 13.1, hematocrit 38.7, platelets 315,000. INR is 1.1. Sodium 135, potassium 3, chloride 101, bicarbonate 28, glucose 33, BUN 10, creatinine 0.9, calcium 8.5. AST 27, ALT 26, alkaline phosphatase 62, albumin 3.7. UA is negative. D-dimer is 767. Magnesium 2. Alcohol less than 5. Urine drug screen is positive for the amphetamines and marijuana. Troponin less than 0.05. Troponin less than 0.05. IMAGING: CT of the head: No acute intracranial abnormality. CT of the chest shows no pulmonary embolism. ASSESSMENT 1. Near syncope. 2. Polysubstance abuse. 3. Hypokalemia. PLAN Plan to admit the patient to the observation with telemetry. Rule out ischemia with serial troponins and will have the psych evaluation for the detox from the polysubstance abuse. Replace the potassium and repeat the labs again in the morning. Further recommendations will follow. Dictated by Carl Velasquez/ty TD: 01/15/2017 16:29 JOB #: [id number] Unit #: [id number] #: [id number] Patient: GEORGIA HUERTA III HISTORY AND PHYSICAL Page 1 of 1 X SHERRIE DORAN MD X HISTORY AND PHYSICAL
--- NOTE | ~2017-01-15 | CT71 ---
[facility] A Service of [facility] RADIOLOGY TEXT RESULTS PATIENT: GEORGIA HUERTA III LOCATION: [facility] : 82 UNIT #: [id number] AGE: [address]: Cristian Thompson DO SEX: M ORDER DR: [id number] [facility] [address] [place], [place] [address] [id number] E MR#: [id number] Acc #: [id number] NAME: GEORGIA HUERTA III : 1980 SEX: M STUDY DATE/TIME: 01/15/2017 10:20 UNIT: [facility] ROOM: STUDY DESCRIPTION: CT Head Wo Contrast Attending Physician: Cristian Thompson D.O. Ordering Physician: Cristian Thompson D.O. Primary Care Physician: No Primary Care Physician MEDICAL IMAGING REPORT This report is preliminary unless electronic signature is present EXAM Noncontrast head CT HISTORY 36-year-old male with possible syncopal episode today, blurred vision, dizziness. COMPARISON Head CT and 02/20/[address] exam was performed with one or more of the following radiation dose reduction techniques: automatic exposure control, adjustment of mA and/or kV according to patient size, and iterative reconstruction. FINDINGS Axial noncontrast imaging of the brain demonstrates the brain parenchyma to be normal. No mass, mass effect or midline shift. No hemorrhage or abnormal extraaxial fluid collections. Ossification seen along the anterior falx. Bony calvarium, skull base, mastoids unremarkable. Minimal ethmoid sinus mucosal disease. IMPRESSION No acute intracranial abnormality identified. Dictated by... Kareem Green M.D. THIS IS AN ELECTRONICALLY VERIFIED REPORT Kareem Green M.D. at 01/15/2017 4:13 PM FLAKO/jimmy [facility] A Service [facility] RADIOLOGY TEXT RESULTS PATIENT: GEORGIA HUERTA III LOCATION: [facility] : [birth year] UNIT #: [id number] AGE: [address]: Cristian Thompson DO SEX: M ORDER DR: TD: 01/15/2017 15:49 JOB #: [id number] MEDICAL IMAGING REPORT Page 1 of 1 COPY
--- NOTE | ~2017-01-15 | CO ---
Unit #: [id number] #: [id number] Patient: HUGO CA III [id number] [address] [place], [place] [address] [id number] I MR#: [id number] NAME: HUGO CA III ROOM: 313 Age: 36 Sex: M Admission Date: 01/15/2017 : 1980 Attending Physician: Alix Ibanez M.D. Consultation Date: 01/16/2017 CONSULTATION REPORT REASON FOR CONSULTATION Anxiety, withdrawals from drugs, history of opioid abuse, methamphetamine abuse, cannabis abuse. HISTORY OF PRESENT ILLNESS Mr. Hugo Ca is a 36-year-old male, seen in room 330, bed 1, on 01/16/2017. The patient lying comfortably in bed. Reports that he was admitted due to syncope, and now he has a blood infection. The patient reports that he got it from IV drug abuse. The patient admitted using meth, opioids, and marijuana. The patient reported admitted yesterday and last use recently. The patient reported having withdrawal symptom, anxiety, restlessness of his legs, trouble sleeping, severe anxiety. The patient denied any suicidal or homicidal ideation. Denied any psychotic symptom. PAST PSYCHIATRIC HISTORY Remarkable for history of previous treatment at [facility]. Discharged on 01/05/2017. The patient was on Paxil 40 mg daily. The patient has a history of multiple admissions at [facility] in 2015 and 2016. PAST MEDICAL HISTORY Remarkable for history of polysubstance abuse, hepatitis C, hypertension, Tourette syndrome, GERD, COPD, history of drug-induced [place]. ALLERGIES To haloperidol, ibuprofen, naproxen. MEDICATION Paxil. FAMILY HISTORY AND SOCIAL HISTORY The patient reports good support from family. No history of abuse. History of substance abuse as mentioned above. REVIEW OF SYSTEMS Complete review of systems is unremarkable except as mentioned above. MENTAL STATUS EXAMINATION Vital signs; temperature 98.3, pulse 61, respirations 16, blood pressure 98/50, oxygen saturations 100%. General appearance, the patient dressed casually, lying comfortably in bed, cooperative. Attention span and concentration, fair. Speech, regular rate and coherent. Oriented in time, place, and person. Mood and affect, sad, dysphoric, anxious. Unit #: [id number] #: [id number] Patient: HUGO CA III Thought process, coherent. Thought content, the patient denied any suicidal or homicidal ideation, but somewhat guarded. Recent and remote memory, fair. Language, intact. Fund of knowledge, fair. Insight and judgment, fair to slightly impaired. DIAGNOSES Psychiatric: Amphetamine use disorder, severe, F15.20; opioid use disorder, severe, F11.20; cannabis abuse, moderate, F12.20; major depressive disorder, recurrent, severe, F33.2. Secondary diagnosis: Deferred. Medical diagnosis: Please refer to H and P. Stressors: Psychosocial stressor. ASSESSMENT AND PLAN 1. Supportive psychotherapy and psychoeducation provided to the patient. 2. Educated about benefits and side effects of medication and course and prognosis of illness. 3. Advised to add following medications. Neurontin 300 mg t.i.d., Vistaril 25 mg t.i.d., Requip 1 mg at bedtime, and trazodone 100 mg at bedtime for sleep, and treat the withdrawal symptoms. We will continue to follow. Please feel free to call if any questions, telephone #[phone]. Dictated by... Carl Carballo/mary TD: 01/16/2017 22:54 JOB #: [id number] CONSULTATION REPORT Page 1 of 1 X Humza Reyna MD X CONSULTATION REPORT
[2017-01-15 10:06] LABS: BASOPHIL# 0.1 X10e3 (0-0.3); BASOPHIL% 0.8 % (0-2.5); EOSINOPHIL# 0.1 X10e3 (0-0.7); EOSINOPHIL% 0.8 % (0.0-7.0); HEMATOCRIT 38.7 % (38.0-50.0); HEMOGLOBIN 13.1 gm/dL (13.0-16.0); LYMPHOCYTE# 1.5 X10e3 (1.0-3.5); MEAN CELL VOLUME 84.7 FL (83-96); MEAN CORPUSCULAR HEMOGLOBIN 28.7 PG (28-34); MEAN CORPUSCULAR HGB CONC 33.8 g/dL (30-36); MEAN PLATELET VOLUME 7.8 FL (6.5-11.5); MONOCYTE# 0.6 X10e3 (0-1.0); MONOCYTE% 6.8 % (3.0-12.0); NEUTROPHIL% 73.6 % (40-75); PLATELET COUNT 315 X10e3 (140-420); RED BLOOD COUNT 4.58 X10e (3.90-5.60); RED CELL DISTRIBUTION WIDTH 14.2 % (11.0-15.5); WHITE BLOOD COUNT 8.1 X10e3 (4.0-10.5)
[2017-01-15 10:12] LABS: DIFF IND NO
[2017-01-15 10:18] LABS: INR 1.1; PARTIAL THROMBOPLASTIN TIME 30.8 SECONDS (23.5-31.3); PROTHROMBIN TIME (PATIENT) 11.8 SECONDS (10.0-11.7)
[2017-01-15 10:51] LABS: ALBUMIN SERUM 3.7 g/dL (3.5-5.0); BILIRUBIN, DIRECT 0.2 mg/dL (0.0-0.2); BILIRUBIN,INDIRECT 1.1 mg/dL (0.0-0.9); BILIRUBIN,TOTAL 1.3 mg/dL (0.2-2.0); BUN/CREATININE RATIO 11.11; CALCIUM SERUM 8.5 mg/dL (8.4-10.2); CREATININE SERUM 0.9 mg/dL (0.6-1.4); GLOM FILT RATE Estimated 110.3 mL/min (>60)
[2017-01-15 10:58] LABS: URINE SOURCE CLEAN CATCH
[2017-01-15 11:06] LABS: URINE APPEARANCE CLEAR; URINE BILIRUBIN NEG (NEG); URINE BLOOD NEG (NEG); URINE COLOR YELLOW; URINE GLUCOSE NEG (NEG); URINE KETONE NEG (NEG); URINE LEUKOCYTE ESTERASE NEG (NEG); URINE NITRATE NEG (NEG); URINE PROTEIN NEG (NEG); URINE SPECIFIC GRAVITY 1.006 (1.003-1.035); URINE UROBILINOGEN 0.2 MG/DL (NEG)
[2017-01-15 11:10] LABS: CULTURE INDICATED? NO
[2017-01-15 11:19] LABS: ALCOHOL BLOOD <5 mg/dL (0)
[2017-01-15 11:35] LABS: AMPHETAMINE POS (NEG); BARBITURATES NEG (NEG); BENZODIAZEPINES NEG (NEG); COCAINE NEG (NEG); MARIJUANA POS (NEG); OPIATES NEG (NEG); TRICYCLIC ANTIDEPRESSANTS NEG (NEG); U METHADONE NEG (NEG)
[2017-01-15 14:02] LABS: POC - CKMB 2.5 ng/mL (0.0-7.9); POC - TROPONIN <0.05 ng/mL (<=0.05)
[2017-01-15 14:12] LABS: POC - CKMB 1.9 ng/mL (0.0-7.9); POC - TROPONIN <0.05 ng/mL (<=0.05)
[2017-01-15] MEDS ORDERED: NO MEDICATIONS (14:31)
[2017-01-16 10:47] LABS: HEMOGLOBIN 13.1 gm/dL (13.0-16.0); MEAN CELL VOLUME 85.5 FL (83-96); MEAN CORPUSCULAR HEMOGLOBIN 28.8 PG (28-34); MEAN CORPUSCULAR HGB CONC 33.7 g/dL (30-36); MEAN PLATELET VOLUME 7.8 FL (6.5-11.5); RED BLOOD COUNT 4.56 X10e (3.90-5.60); RED CELL DISTRIBUTION WIDTH 14.3 % (11.0-15.5); WHITE BLOOD COUNT 5.1 X10e3 (4.0-10.5)
[2017-01-16 11:40] LABS: BUN/CREATININE RATIO 11.25; CALCIUM SERUM 8.9 mg/dL (8.4-10.2); CREATININE SERUM 0.8 mg/dL (0.6-1.4); GLOM FILT RATE Estimated 115.8 mL/min (>60); POTASSIUM 4.1 mmol/L (3.5-5.1)
== END 2017-01-17 18:25 | disposition left against medical advice (07) ==
LOC: CED 09:28 → CEDOF 15:45 → CED 17:33 → C3A PCU 17:35 → CEDOF 17:35 → C3A PCU 01-17 18:25
PROVIDERS: Emergency Medicine; Internal Medicine
DX: R55 Syncope and collapse (principal); F19.939 Other psychoactive substance use, unspecified with withdrawal, unspecified; F41.9 Anxiety disorder, unspecified; F11.20 Opioid dependence, uncomplicated; F12.20 Cannabis dependence, uncomplicated; F33.2 Major depressive disorder, recurrent severe without psychotic features; F15.10 Other stimulant abuse, uncomplicated; E87.6 Hypokalemia; I10 Essential (primary) hypertension; B19.20 Unspecified viral hepatitis C without hepatic coma; K21.9 Gastro-esophageal reflux disease without esophagitis; J44.9 Chronic obstructive pulmonary disease, unspecified; Z88.8 Allergy status to other drugs, medicaments and biological substances; F17.200 Nicotine dependence, unspecified, uncomplicated; F95.2 Tourette's disorder; I25.2 Old myocardial infarction; Z79.899 Other long term (current) drug therapy
CPT/HCPCS: 36415; 70450; 71010; 71275; 80048; 80076; 80307; 81003; 82553; 83735; 84132; 84484; 85025; 85027; 85379; 85610; 85730; 87040; 93005; 96365; 96366; 96372; 99285; G0378; G0480; J1650; J3370; Q9967